=== PATIENT | male | born 1960 | race Caucasian/White ===

== ENCOUNTER 2017-12-02 09:12 | Inpatient (IN) | payer BC ==
[2017-12-02] VITALS (8 sets, daily range): BP systolic 132–183; BP diastolic 77–92; PULSE 83–104; RESP 15–18; TEMP 97.3–98.2; O2SAT 98–100
[~2017-12-02] VITALS: Ht 182.9 cm; Wt 88.7 kg
[2017-12-02] MEDS ORDERED: TETANUS/DIPHTHERIA TOXOID ADULT 0.5 ML VIAL IM ONE (09:30)
[2017-12-02] MEDS ORDERED: SODIUM CHLORIDE 0.9% FLUSH 10 ML FLUSH IVF PRN (09:30)
[2017-12-02] MEDS ORDERED: ONDANSETRON HCL 4 MG/2 ML VIAL IVP ONE (09:30)
[2017-12-02] MEDS ORDERED: MORPHINE SULFATE 4 MG/ML INJ IV PUSH ONE (09:30)
--- NOTE | 2017-12-02 09:33 | PD ---
HPI Chief Complaint: Fall Time Seen by Provider: 09:20 Travel History International Travel<30 days: No Contact w/Intl Traveler<30days: No Traveled to known affect area: No History of Present Illness HPI The patient is a 57-year-old male who presents to the emergency department via EMS after a fall at home. According to EMS the patient apparently fell at home last night, however, would not allow his to call EMS. The patient was ambulating to the bathroom this morning, however, had difficulty bearing weight. EMS noted a leg length discrepancy in the left leg, the patient does complain of left hip pain. According to EMS the patient has a history of dementia but takes no medications and has no known drug allergies. Upon arrival the patient is a poor historian, does complain of left hip pain. 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 He does complain of some abrasions to the right arm with the left hip pain. He denies any head injury, neck pain, chest pain, shortness breath, nausea, vomiting, or abdominal pain. However, he is a somewhat poor historian. [facility] Past Medical History Narrative Medical Dementia per EMS Past Surgical History Narrative Surgical Poor historian, unable to obtain Social History Tobacco Use: Yes Allergies-Medications (Allergen,Severity, Reaction): Coded Allergies: No Known Allergies (Verified Allergy, Unknown, 12/02/17) Reported Meds & Prescriptions Reported Meds & Active Scripts Active No Active Prescriptions or Reported Medications Review of Systems ROS Limitations: Poor Historian Except as stated in HPI: all other systems reviewed are Neg HENT: No: Headaches, Neck Pain Cardiovascular: No: Chest Pain or Discomfort Respiratory: No: Shortness of Breath Gastrointestinal: No: Nausea, Vomiting, Abdominal Pain Musculoskeletal: Positive: Limited ROM, Pain Neurologic: Positive: Other (history of dementia) Physical Exam Narrative GENERAL: Awake, alert, 57-year-old male appears his stated age, does appear somewhat disheveled. SKIN: Focused skin assessment warm/dry. Superficial abrasions noted to the right forearm. HEAD: Atraumatic. Normocephalic. EYES: Pupils equal and round. 3 mm bilateral and reactive. ENT: No nasal bleeding or discharge. Mucous membranes pink and moist. NECK: Trachea midline. No JVD. CARDIOVASCULAR: Regular rate and rhythm. No murmur appreciated. RESPIRATORY: No accessory muscle use. Clear to auscultation. Breath sounds equal bilaterally. GASTROINTESTINAL: Abdomen soft, non-tender, nondistended. No rebound tenderness. MUSCULOSKELETAL: Leg length discrepancy noted on the left, patient is unable to completely extend the left lower extremity. Tenderness of the left hip. Positive dorsalis pedal pulses. NEUROLOGICAL: Awake and alert. No obvious cranial nerve deficits. Motor grossly within normal limits. Normal speech. Nonfocal. 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 PSYCHIATRIC: Appears confused. Data Data Last Documented VS Vital Signs Date Time Temp Pulse Resp B/P (MAP) Pulse Ox O2 Delivery O2 Flow Rate FiO2 12/02/17 10:47 97.8 83 15 169/79 (109) 100 Room Air Orders Orders Electrocardiogram (12/02/17 09:20) Complete Blood Count With Diff (12/02/17 09:20) Comprehensive Metabolic Panel (12/02/17 09:20) Prothrombin Time / Inr (Pt) (12/02/17 09:20) Act Partial Throm Time (Ptt) (12/02/17 09:20) Urinalysis - C+S If Indicated (12/02/17 09:20) Type And Screen (12/02/17 09:20) Chest, Single Ap (12/02/17 09:20) Hip, Uni(Ap&Lat) W Ap Pelvis (12/02/17 09:20) Iv Access Insert/Monitor (12/02/17 09:20) Oximetry (12/02/17 09:20) Ecg Monitoring (12/02/17 09:20) Morphine Inj (Morphine Inj) (12/02/17 09:30) Ondansetron Inj (Zofran Inj) (12/02/17 09:30) Sodium Chloride 0.9% Flush (Ns Flush) (12/02/17 09:30) Tetanus/Diphtheria Tox Adult (Tetanus/Di (12/02/17 09:30) Npo After Midnight W/ Po Meds (12/02/17 Lunch) Urine Culture (12/02/17 10:45) Labs Laboratory Tests Test 12/02/17 09:25 12/02/17 10:45 White Blood Count 12.4 TH/MM3 Red Blood Count 4.67 MIL/MM3 Hemoglobin 15.2 GM/DL Hematocrit 44.1 % Mean Corpuscular Volume 94.5 FL Mean Corpuscular Hemoglobin 32.6 PG Mean Corpuscular Hemoglobin Concent 34.5 % Red Cell Distribution Width 12.8 % Platelet Count 175 TH/MM3 Mean Platelet Volume 9.2 FL Neutrophils (%) (Auto) 88.7 % Lymphocytes (%) (Auto) 3.6 % Monocytes (%) (Auto) 7.6 % Eosinophils (%) (Auto) 0.0 % Basophils (%) (Auto) 0.1 % Neutrophils # (Auto) 11.0 TH/MM3 Lymphocytes # (Auto) 0.4 TH/MM3 Monocytes # (Auto) 0.9 TH/MM3 Eosinophils # (Auto) 0.0 TH/MM3 Basophils # (Auto) 0.0 TH/MM3 CBC Comment DIFF FINAL Differential Comment Prothrombin Time 10.0 SEC Prothromb Time International Ratio 1.0 RATIO Activated Partial Thromboplast Time 26.2 SEC Blood Urea Nitrogen 12 MG/DL Creatinine 1.09 MG/DL Random Glucose 111 MG/DL Total Protein 7.2 GM/DL Albumin 4.2 GM/DL Calcium Level 9.0 MG/DL Alkaline Phosphatase 78 U/L Aspartate Amino Transf (AST/SGOT) 25 U/L Alanine Aminotransferase (ALT/SGPT) 21 U/L Total Bilirubin 2.1 MG/DL Sodium Level 127 MEQ/L Potassium Level 4.5 MEQ/L Chloride Level 95 MEQ/L Carbon Dioxide Level 24.2 MEQ/L Anion Gap 8 MEQ/L Estimat Glomerular Filtration Rate 69 ML/MIN Urine Color YELLOW Urine Turbidity CLEAR Urine pH 7.0 Urine Specific [place] 1.007 Urine Protein TRACE mg/dL Urine Glucose (UA) NEG mg/dL Urine Ketones TRACE mg/dL Urine Occult Blood MOD Urine Nitrite NEG Urine Bilirubin NEG Urine Urobilinogen LESS THAN 2.0 MG/DL Urine Leukocyte Esterase NEG Urine RBC 1 /hpf Urine WBC 3 /hpf Urine Bacteria OCC /hpf Urine Mucus FEW /lpf Microscopic Urinalysis Comment CATH-CULTURE IND MDM Medical Decision Making Medical Screen Exam Complete: Yes Emergency Medical Condition: Yes Medical Record Reviewed: Yes Interpretation(s) EKG reveals normal sinus rhythm with a rate 81. No ischemic changes or ectopy noted. Last Impressions Hip and Pelvis X-Ray 12/02/17 0920 Signed Impressions: Service Date/Time: November 10:02 - CONCLUSION: 1. Acute fracture involving the left femoral neck. 2. Degenerative changes involving the lower lumbar spine. Rashid Csatañeda MD Chest X-Ray 12/02/17919 Signed Impressions: Service Date/Time: November 10:14 - CONCLUSION: 1. Faint periosteal reaction symmetrically along the lateral aspect of both second ribs probably represents a normal tendinous or ligamentous attachment. 2. Mild dextroscoliosis of the dorsal spine with associated degenerative changes. 3. Otherwise negative. Lungs are clear. No acute osseous injury. Ronny Mccoy MD Laboratory Tests Test 12/02/17 09:25 12/02/17 10:45 White Blood Count 12.4 TH/MM3 Red Blood Count 4.67 MIL/MM3 Hemoglobin 15.2 GM/DL Hematocrit 44.1 % Mean Corpuscular Volume 94.5 FL Mean Corpuscular Hemoglobin 32.6 PG Mean Corpuscular Hemoglobin Concent 34.5 % Red Cell Distribution Width 12.8 % Platelet Count 175 TH/MM3 Mean Platelet Volume 9.2 FL Neutrophils (%) (Auto) 88.7 % Lymphocytes (%) (Auto) 3.6 % Monocytes (%) (Auto) 7.6 % Eosinophils (%) (Auto) 0.0 % Basophils (%) (Auto) 0.1 % Neutrophils # (Auto) 11.0 TH/MM3 Lymphocytes # (Auto) 0.4 TH/MM3 Monocytes # (Auto) 0.9 TH/MM3 Eosinophils # (Auto) 0.0 TH/MM3 Basophils # (Auto) 0.0 TH/MM3 CBC Comment DIFF FINAL Differential Comment Prothrombin Time 10.0 SEC Prothromb Time International Ratio 1.0 RATIO Activated Partial Thromboplast Time 26.2 SEC Blood Urea Nitrogen 12 MG/DL Creatinine 1.09 MG/DL Random Glucose 111 MG/DL Total Protein 7.2 GM/DL Albumin 4.2 GM/DL Calcium Level 9.0 MG/DL Alkaline Phosphatase 78 U/L Aspartate Amino Transf (AST/SGOT) 25 U/L Alanine Aminotransferase (ALT/SGPT) 21 U/L Total Bilirubin 2.1 MG/DL Sodium Level 127 MEQ/L Potassium Level 4.5 MEQ/L Chloride Level 95 MEQ/L Carbon Dioxide Level 24.2 MEQ/L Anion Gap 8 MEQ/L Estimat Glomerular Filtration Rate 69 ML/MIN Urine Color YELLOW Urine Turbidity CLEAR Urine pH 7.0 Urine Specific [place] 1.007 Urine Protein TRACE mg/dL Urine Glucose (UA) NEG mg/dL Urine Ketones TRACE mg/dL Urine Occult Blood MOD Urine Nitrite NEG Urine Bilirubin NEG Urine Urobilinogen LESS THAN 2.0 MG/DL Urine Leukocyte Esterase NEG Urine RBC 1 /hpf Urine WBC 3 /hpf Urine Bacteria OCC /hpf Urine Mucus FEW /lpf Microscopic Urinalysis Comment CATH-CULTURE IND Differential Diagnosis Differential diagnosis includes left hip fracture, pelvic fracture, hip dislocation, mechanical fall, rhabdomyolysis, dementia, delirium, UTI, hyponatremia, abrasion. Narrative Course IV was established, labs are drawn and sent, and the patient was placed on cardiac telemetry monitoring and continuous pulse oximetry monitoring. EKG was ordered and interpreted. X-ray of the chest, pelvis, and left hip were obtained. The patient was administered morphine, Zofran, and placed on IV fluids. X-ray left hip reveals a left femoral neck fracture. I discussed the patient with the on-call orthopedist, Dr. Suggs, who requested patient be kept nothing by mouth after midnight. Nervous was paged for admission. Physician Communication Physician Communication I discussed the patient with the on-call orthopedist who request nothing by mouth after midnight. A call was placed to the on-call medical service for admission. I discussed the patient with Dr. Fleming who agrees with admission. Diagnosis Primary Impression: Left displaced femoral neck fracture Admitting Information Admitting Physician Requests: Admit Scripts No Active Prescriptions or Reported Meds Condition: Stable Huang Mabry MD Dec 02, 2017 09:33
[2017-12-02 10:07] LABS: BASOPHIL % 0.1 % (0.0-2.0); HEMATOCRIT 44.1 % (39.0-51.0); HEMOGLOBIN 15.2 GM/DL (13.0-17.0); LYMPH % 3.6 % (9.0-44.0); LYMPHOCYTE # 0.4 TH/MM3 (1.0-4.8); MEAN CELL VOLUME 94.5 FL (80.0-100.0); MEAN CORPUSCULAR HEMOGLOBIN 32.6 PG (27.0-34.0); MEAN CORPUSCULAR HGB CONC 34.5 % (32.0-36.0); MEAN PLATELET VOLUME 9.2 FL (7.0-11.0); MONO % 7.6 % (0.0-8.0); MONOCYTE # 0.9 TH/MM3 (0-0.9); NEUT % 88.7 % (16.0-70.0); PLATELET COUNT 175 TH/MM3 (150-450); RED BLOOD COUNT 4.67 MIL/MM3 (4.50-5.90); RED CELL DISTRIBUTION WIDTH 12.8 % (11.6-17.2); WHITE BLOOD COUNT 12.4 TH/MM3 (4.0-11.0)
[2017-12-02 10:20] LABS: ALBUMIN 4.2 GM/DL (3.4-5.0); AST (GOT) 25 U/L (15-37); BICARBONATE 24.2 MEQ/L (21.0-32.0); BLOOD UREA NITROGEN 12 MG/DL (7-18); CHLORIDE 95 MEQ/L (98-107); CREATININE 1.09 MG/DL (0.60-1.30); GLOMERULAR FILTRATION RATE 69 ML/MIN (>89); GLUCOSE,RANDOM 111 MG/DL (74-106); SODIUM (NA) 127 MEQ/L (136-145)
[2017-12-02 10:21] LABS: ALT (GPT) 21 U/L (12-78)
[2017-12-02 10:23] LABS: ALKALINE PHOSPHATASE 78 U/L (45-117); TOTAL BILIRUBIN ADULT 2.1 MG/DL (0.2-1.0); TOTAL PROTEIN 7.2 GM/DL (6.4-8.2)
--- NOTE | 2017-12-02 10:31 | RADRPT ---
EXAM DATE/TIME: 12/02/2017 10:14 [facility] COMPARISON: No previous studies available for comparison. INDICATIONS : Chest discomfort; fall last night. MEDICAL HISTORY : Unobtainable. SURGICAL HISTORY : Unobtainable. ENCOUNTER: Initial ACUITY: 1 day PAIN SCORE: Non-responsive. LOCATION: Bilateral chest FINDINGS: A single view of the chest demonstrates the lungs to be symmetrically aerated without evidence of mas s, infiltrate or effusion. The cardiomediastinal contours are unremarkable. Osseous structures are intact with some degenerative spurring of the dorsal spine. Mild dextroscoliosis of the same. However , there does appear to be some periosteal reaction along the lateral aspect of the second ribs bilate rally, left greater than right. Symmetry suggests normal anatomic structures, possibly representing t endinous or ligamentous attachments. CONCLUSION: 1. Faint periosteal reaction symmetrically along the lateral aspect of both second ribs probably repr esents a normal tendinous or ligamentous attachment. 2. Mild dextroscoliosis of the dorsal spine with associated degenerative changes. 3. Otherwise negative. Lungs are clear. No acute osseous injury. Ronny Mccoy MD on December 02, 2017 at 10:25 Board Certified Radiologist. This report was verified electronically.
--- NOTE | 2017-12-02 10:34 | RADRPT ---
EXAM DATE/TIME: 12/02/2017 10:02 [facility] COMPARISON: No previous studies available for comparison. INDICATIONS : Left hip pain from fall last night. MEDICAL HISTORY : None. SURGICAL HISTORY : None. ENCOUNTER: Initial ACUITY: 1 day PAIN SCORE: Non-responsive. LOCATION: Left hip. FINDINGS: There is evidence of an acute fracture involving the left femoral neck. Degenerative changes are note d involving the lower lumbar spine. CONCLUSION: 1. Acute fracture involving the left femoral neck. 2. Degenerative changes involving the lower lumbar spine. Rashid Castañeda MD on December 02, 2017 at 10:30 Board Certified Radiologist. This report was verified electronically.
[2017-12-02 11:21] LABS: BACTERIA, URINE OCC /hpf; BILIRUBIN, URINE NEG (NEG); BLOOD, URINE MOD (NEG); GLUCOSE,URINE NEG (NEG); KETONE, URINE TRACE mg/dL (NEG); MUCUS URINE FEW /lpf (OCC); NITRITE,URINE NEG (NEG); URINE COLOR YELLOW (YELLW/STRAW); URINE LEUKOCYTE ESTERASE NEG (NEG)
[2017-12-02] MEDS ORDERED: BISACODYL 10 MG SUPP RECTAL PRN (13:00)
[2017-12-02] MEDS ORDERED: ONDANSETRON HCL 4 MG/2 ML VIAL IVP PRN (13:00)
[2017-12-02] MEDS ORDERED: ACETAMINOPHEN 325 MG TAB PO PRN (13:00)
[2017-12-02] MEDS ORDERED: SENNOSIDES 8.6 MG TAB PO PRN (13:00)
[2017-12-02] MEDS ORDERED: NALOXONE HCL 0.4 MG/ML AMP IV PUSH PRN (13:00)
[2017-12-02] MEDS ORDERED: LACTULOSE SYRUP 20 GM/30 ML CUP PO PRN (13:00)
[2017-12-02] MEDS ORDERED: MORPHINE SULFATE 2 MG/ML INJ IV PUSH PRN (13:00)
[2017-12-02] MEDS ORDERED: SODIUM CHLORIDE 0.9% FLUSH 10 ML FLUSH IV FLUSH PRN (13:00)
--- NOTE | 2017-12-02 13:03 | HHI.HP ---
HPI Service [facility] Hospitalists Primary Care Physician No Primary Care Physician Admission Diagnosis left femoral neck fracture Diagnoses: Chief Complaint: Fall, AMS Travel History International Travel<30 Days: No Contact w/Intl Traveler <30 Da: No Traveled to Known Affected Are: No History of Present Illness This is a 57-year-old male with past medical history significant for early onset dementia who presents to [facility] after he sustained a fall. Please note that due to the patient's early onset dementia, he is unable to provide any history or significant information. As per the patient's the patient fell the night prior to presentation to the hospital and his found him on the floor. She states that the patient was able to get out of the floor himself however he was limping and complaining of pain on the left hip. The patient's also states that the patient was slightly more confused than his usual confusion. The patient's states that they had followed up 3 years ago with a neurologist in the [facility] [address] [place], who ran some tests, however none of these were revealing at the time. Otherwise there are no reports of fevers, chills, chest pain, shortness of breath, diarrhea, abdominal pain. Review of Systems As per HPI, other systems reviewed by me and negative. Past Family Social History Past Medical History 1. Early onset dementia. 2. Hypertension, however the patient has lost a lot of weight as per and was taking of medications. Past Surgical History None Reported Medications Reported Meds & Active Scripts Active No Active Prescriptions or Reported Medications Allergies: Coded Allergies: No Known Allergies (Verified Allergy, Unknown, 12/02/17) Active Ordered Medications Current Medications Medications (Trade) Dose Ordered Sig/Robert Route Start Time Stop Time Status Last Admin Sodium Chloride 1,000 ml @ 75 mls/hr [id number] IV 12/02/17 12:50 12/02/17 13:11 (NS Flush) 2 ml UNSCH PRN IV FLUSH 12/02/17 13:00 (NS Flush) 2 ml BID IV FLUSH 12/02/17 21:00 (Tylenol) 650 mg Q4H PRN PO 12/02/17 13:00 (Zofran Inj) 4 mg Q6H PRN IVP 12/02/17 13:00 (Heparin Inj) 5,000 units Q8H SQ 12/02/17 14:00 12/02/17 13:11 (Narcan Inj) 0.4 mg UNSCH PRN IV PUSH 12/02/17 13:00 (Melinda-Colace) 1 tab BID PO 12/02/17 21:00 12/02/17 20:01 (Milk Of Magnesia Liq) 30 ml Q12H PRN PO 12/02/17 13:00 (Senokot) 17.2 mg Q12H PRN PO 12/02/17 13:00 (Dulcolax Supp) 10 mg DAILY PRN RECTAL 12/02/17 13:00 (Lactulose Liq) 30 ml DAILY PRN PO 12/02/17 13:00 ([place] 5-325 Mg) 1 tab Q4H PRN PO 12/02/17 13:00 12/03/17 09:05 (Morphine Inj) 2 mg Q3H PRN IV PUSH 12/02/17 13:00 12/03/17 00:07 (Romazicon Inj) 0.2 mg Q1M PRN IV PUSH 12/02/17 13:15 (Ativan) 1 mg Q4H PRN PO 12/02/17 13:15 (Ativan Inj) 1 mg Q4H PRN IV PUSH 12/02/17 13:15 12/02/17 20:00 (Ativan) 2 mg Q2H PRN PO 12/02/17 13:15 (Ativan Inj) 2 mg Q2H PRN IV PUSH 12/02/17 13:15 12/03/17 01:06 (Ativan Inj) 2 mg Q1H PRN IV PUSH 12/02/17 13:15 (Ativan Inj) 2 mg Q15M PRN IV PUSH 12/02/17 13:15 Lactated Ringer's 1,000 ml @ 30 mls/hr Q24H PRN IV 12/03/17 00:30 12/06/17 00:29 (Betadine 5% Antisepsis Kit) 1 applic [employer] PRN EACH NARE 12/03/17 00:30 12/06/17 00:29 (Chlorhexidine 2% Cloth) 3 pack [employer] PRN TOPICAL 12/03/17 00:30 12/06/17 00:29 (Folate) 1 mg DAILY PO 12/03/17 09:00 (Vitamin B1) 100 mg DAILY PO 12/03/17 09:00 Family History Father had dementia at around age 72. Social History The patient is a current smoker he smokes 3-4 cigarettes per day, however he used to smoke 2 packs per day for several years. The patient drinks 6-8 beers per day and he has done it for over 20 years. No illicit drug use reported. Physical Exam Vital Signs Vital Signs Date Time Temp Pulse Resp B/P (MAP) Pulse Ox O2 Delivery O2 Flow Rate FiO2 12/02/17 10:47 97.8 83 15 169/79 (109) 100 Room Air 12/02/17 09:37 16 12/02/17 09:24 16 99 Room Air 12/02/17 09:17 80 16 99 Room Air 12/02/17 09:17 98.1 87 16 183/88 (119) 100 Physical Exam GENERAL: This is a well-nourished, well-developed patient, in no apparent distress. SKIN: No rashes, ecchymoses or lesions. Cool and dry. HEAD: Atraumatic. Normocephalic. No temporal or scalp tenderness. EYES: Pupils equal round and reactive. Extraocular motions intact. No scleral icterus. No injection or drainage. ENT: Nose without bleeding, purulent drainage or septal hematoma. Throat without erythema, tonsillar hypertrophy or exudate. Uvula midline. Airway patent. NECK: Trachea midline. No JVD or lymphadenopathy. Supple, nontender, no meningeal signs. CARDIOVASCULAR: Regular rate and rhythm without murmurs, gallops, or rubs. RESPIRATORY: Clear to auscultation. Breath sounds equal bilaterally. No wheezes , rales, or rhonchi. GASTROINTESTINAL: Abdomen soft, non-tender, nondistended. No hepato-splenomegaly , or palpable masses. No guarding. MUSCULOSKELETAL: Extremities without clubbing, cyanosis, or edema. No joint tenderness, effusion, or edema noted. No calf tenderness. Negative Homans sign bilaterally. Left lower extremity is shortened and externally rotated. NEUROLOGICAL: Awake and alert. Cranial nerves II through XII intact. Motor and sensory grossly within normal limits. Five out of 5 muscle strength in all muscle groups. Normal speech. Laboratory Laboratory Tests Test 12/02/17 09:25 12/02/17 10:45 White Blood Count 12.4 Red Blood Count 4.67 Hemoglobin 15.2 Hematocrit 44.1 Mean Corpuscular Volume 94.5 Mean Corpuscular Hemoglobin 32.6 Mean Corpuscular Hemoglobin Concent 34.5 Red Cell Distribution Width 12.8 Platelet Count 175 Mean Platelet Volume 9.2 Neutrophils (%) (Auto) 88.7 Lymphocytes (%) (Auto) 3.6 Monocytes (%) (Auto) 7.6 Eosinophils (%) (Auto) 0.0 Basophils (%) (Auto) 0.1 Neutrophils # (Auto) 11.0 Lymphocytes # (Auto) 0.4 Monocytes # (Auto) 0.9 Eosinophils # (Auto) 0.0 Basophils # (Auto) 0.0 CBC Comment DIFF FINAL Differential Comment Prothrombin Time 10.0 Prothromb Time International Ratio 1.0 Activated Partial Thromboplast Time 26.2 Blood Urea Nitrogen 12 Creatinine 1.09 Random Glucose 111 Total Protein 7.2 Albumin 4.2 Calcium Level 9.0 Alkaline Phosphatase 78 Aspartate Amino Transf (AST/SGOT) 25 Alanine Aminotransferase (ALT/SGPT) 21 Total Bilirubin 2.1 Sodium Level 127 Potassium Level 4.5 Chloride Level 95 Carbon Dioxide Level 24.2 Anion Gap 8 Estimat Glomerular Filtration Rate 69 Urine Color YELLOW Urine Turbidity CLEAR Urine pH 7.0 Urine Specific [place] 1.007 Urine Protein TRACE Urine Glucose (UA) NEG Urine Ketones TRACE Urine Occult Blood MOD Urine Nitrite NEG Urine Bilirubin NEG Urine Urobilinogen LESS THAN 2.0 Urine Leukocyte Esterase NEG Urine RBC 1 Urine WBC 3 Urine Bacteria OCC Urine Mucus FEW Microscopic Urinalysis Comment CATH-CULTURE IND Date/Time Source Procedure Growth Status 12/02/17 10:45 Urine Catheterized Urine Urine Culture Pending Received Result Diagram: 12/02/1792412/02/17924 Imaging Last Impressions Hip and Pelvis X-Ray 12/02/17919 Signed Impressions: Service Date/Time: November 10:02 - CONCLUSION: 1. Acute fracture involving the left femoral neck. 2. Degenerative changes involving the lower lumbar spine. Rashid Castañeda MD Chest X-Ray 12/02/17919 Signed Impressions: Service Date/Time: November 10:14 - CONCLUSION: 1. Faint periosteal reaction symmetrically along the lateral aspect of both second ribs probably represents a normal tendinous or ligamentous attachment. 2. Mild dextroscoliosis of the dorsal spine with associated degenerative changes. 3. Otherwise negative. Lungs are clear. No acute osseous injury. Ronny Mccoy MD Head CT 12/02/17 Signed Impressions: Service Date/Time: November 14:59 - CONCLUSION: 1. Cerebral atrophy, most prominent in the anterior aspect of the left temporal lobe. 2. Small retention cyst in both maxillary antra. Osseous structures are intact. Ronny Mccoy MD Brain MRI 12/02/17 Signed Impressions: Service Date/Time: November 14:09 - CONCLUSION: 1. Negative examination. Corbin Ott MD Caprini VTE Risk Assessment Caprini VTE Risk Assessment: Mod/High Risk (score >= 2) Caprini Risk Assessment Model Point Value = 1 Point Value = 2 Point Value = 3 Point Value = 5 Age 41-60 Minor surgery BMI > 25 kg/m2 Swollen legs Varicose veins or History of unexplained or recurrent spontaneous Oral contraceptives or hormone replacement Sepsis (< 1 month) Serious lung disease, including pneumonia (< 1 month) Abnormal pulmonary function Acute myocardial infarction Congestive heart failure (< 1 month) History of inflammatory bowel disease Medical patient at bed rest Age 61-74 Arthroscopic surgery Major open surgery (> 45 min) Laparoscopic surgery (> 45 min) Malignancy Confined to bed (> 72 hours) Immobilizing plaster cast Central venous access Age >= 75 History of VTE Family history of VTE Factor V Leiden Prothrombin [id number] Lupus anticoagulant Anticardiolipin antibodies Elevated serum homocysteine Heparin-induced thrombocytopenia Other congenital or acquired thrombophilia Stroke (< 1 month) Elective arthroplasty Hip, pelvis, or leg fracture Acute spinal cord injury (< 1 month) Prophylaxis Regimen Total Risk Factor Score Risk Level Prophylaxis Regimen 0-1 Low Early ambulation 2 Moderate Order ONE of the following: *Sequential Compression Device (SCD) *Heparin 5000 units SQ BID 3-4 Higher Order ONE of the following medications: *Heparin 5000 units SQ TID *Enoxaparin/Lovenox 40 mg SQ daily (WT < 150 kg, CrCl > 30 mL/min) *Enoxaparin/Lovenox 30 mg SQ daily (WT < 150 kg, CrCl > 10-29 mL/min) *Enoxaparin/Lovenox 30 mg SQ BID (WT < 150 kg, CrCl > 30 mL/min) AND/OR *Sequential Compression Device (SCD) 5 or more Highest Order ONE of the following medications: *Heparin 5000 units SQ TID (Preferred with Epidurals) *Enoxaparin/Lovenox 40 mg SQ daily (WT < 150 kg, CrCl > 30 mL/min) *Enoxaparin/Lovenox 30 mg SQ daily (WT < 150 kg, CrCl > 10-29 mL/min) *Enoxaparin/Lovenox 30 mg SQ BID (WT < 150 kg, CrCl > 30 mL/min) AND *Sequential Compression Device (SCD) Assessment and Plan Problem List: (1) Left displaced femoral neck fracture ICD Code: S72.002A - Fracture of unspecified part of neck of left femur, initial encounter for closed fracture Status: Acute Plan: Patient status post fall at home. Pelvis x-ray showed an acute fracture involving the left femoral neck. Orthopedic surgery consulted. Patient for OR in a.m. (2) Early onset Alzheimer's dementia ICD Code: G30.0 - Alzheimer's disease with early onset; F02.80 - Dementia in other diseases classified elsewhere without behavioral disturbance Plan: As per the patient's the patient is more confused than usual. We will order head CT, MRI of the brain, B12, RPR, HIV, TSH (3) Hyponatremia ICD Code: E87.1 - Hypo-osmolality and hyponatremia Plan: Suspect hypovolemic hyponatremia. Place on IV normal saline monitor BMP. (4) Leukocytosis ICD Code: D72.829 - Elevated white blood cell count, unspecified Plan: Check urinalysis. Chest x-ray did not show any evidence of pneumonia. (5) Fall at home ICD Code: W19.XXXA - Unspecified fall, initial encounter; Y92.009 - Unspecified place in unspecified non-institutional (private) residence as the place of occurrence of the external cause Plan: Physical therapy evaluation. Follow at home likely induced by hyponatremia worsened mental status. Assessment and Plan DVT prophylaxis: Heparin subcutaneously. Code Status Full code Discussed Condition With ED physician Physician Certification 2 Midnight Certification Type: Admission for Inpatient Services Order for Inpatient Services The services are ordered in accordance with Medicare regulations or non- Medicare payer requirements, as applicable. In the case of services not specified as inpatient-only, they are appropriately provided as inpatient services in accordance with the 2-midnight benchmark. Estimated LOS (days): 2 days is the estimated time the patient will need to remain in the hospital, assuming treatment plan goals are met and no additional complications. Post-Hospital Plan: Not yet determined Problem Qualifiers (1) Early onset Alzheimer's dementia: Qualified Codes: G30.0 - Alzheimer's disease with early onset; F02.80 - Dementia in other diseases classified elsewhere without behavioral disturbance (2) Leukocytosis: Qualified Codes: D72.829 - Elevated white blood cell count, unspecified Hossein Paniagua MD Dec 02, 2017 13:03
[2017-12-02] MEDS: SODIUM CHLOR 0.45% 1000 ML INJ 1,000 ML IV SCH (13:11)
[2017-12-02] MEDS: HEPARIN SODIUM - SQ 10,000 UNITS/ML VIAL SQ SCH ×2 (13:11→20:04)
[2017-12-02] MEDS ORDERED: LORazepam 2 MG TAB PO PRN (13:15)
[2017-12-02] MEDS ORDERED: LORazepam 2 MG/ML VIAL IV PUSH PRN ×4 (13:15)
[2017-12-02] MEDS ORDERED: LORazepam 1 MG TAB PO PRN (13:15)
[2017-12-02] MEDS ORDERED: FLUMAZENIL 0.5 MG/5 ML VIAL IV PUSH PRN (13:15)
[2017-12-02] MEDS: ACETAMINOPHEN/HYDROcodone 325 MG/5 MG TAB PO PRN (13:41)
[2017-12-02] MEDS ORDERED: GADODIAMIDE PF 287 MG/ML 20 ML VIAL (for RAD MRI) IVCONTRAST ONE (14:29)
--- NOTE | 2017-12-02 15:25 | RADRPT ---
EXAM DATE/TIME: 12/02/2017 14:59 [facility] COMPARISON: No previous studies available for comparison. INDICATIONS : Altered mental status with confusion. RADIATION DOSE: 56.35 CTDIvol (mGy) MEDICAL HISTORY : Dementia. SURGICAL HISTORY : Non-responsive. ENCOUNTER: Initial ACUITY: 1 day PAIN SCALE: Non-responsive LOCATION: Bilateral cranial TECHNIQUE: Multiple contiguous axial images were obtained of the head. Using automated exposure control and adj ustment of the mA and/or kV according to patient size, radiation dose was kept as low as reasonably a chievable to obtain optimal diagnostic quality images. DICOM format image data is available electro nically for review and comparison. FINDINGS: CEREBRUM: The ventricles are normal for age. Cortical atrophy is most prominent in the left temporal lobe but also involves the parietal convexities. No evidence of midline shift, mass lesion, hemorrhage or acut e infarction. No extra-axial fluid collections are seen. POSTERIOR FOSSA: The cerebellum and brainstem are intact. The 4th ventricle is midline. The cerebellopontine angle i s unremarkable. EXTRACRANIAL: The visualized portion of the orbits is intact. Small retention cyst in both maxillary antra. SKULL: The calvaria is intact. No evidence of skull fracture. CONCLUSION: 1. Cerebral atrophy, most prominent in the anterior aspect of the left temporal lobe. 2. Small retention cyst in both maxillary antra. Osseous structures are intact. Ronny Mccoy MD on December 02, 2017 at 15:20 Board Certified Radiologist. This report was verified electronically.
[2017-12-02 16:14] LABS: BICARBONATE 24.9 MEQ/L (21.0-32.0); BLOOD UREA NITROGEN 13 MG/DL (7-18); CALCIUM 8.2 MG/DL (8.5-10.1); CHLORIDE 100 MEQ/L (98-107); CREATININE 1.02 MG/DL (0.60-1.30); GLOMERULAR FILTRATION RATE 75 ML/MIN (>89); GLUCOSE,RANDOM 114 MG/DL (74-106); SODIUM (NA) 131 MEQ/L (136-145)
[2017-12-02 16:56] LABS: HEMOGLOBIN A1C 5.4 % (4.3-6.0)
--- NOTE | 2017-12-02 16:58 | RADRPT ---
EXAM DATE/TIME: 12/02/2017 14:09 [facility] COMPARISON: No previous studies available for comparison. INDICATIONS : Confusion. CONTRAST: 17 cc Omniscan (gadodiamide) IV MEDICAL HISTORY : Hypertension. SURGICAL HISTORY : None. ENCOUNTER: Initial ACUITY: 1 day PAIN SCORE: 0/10 LOCATION: Head. TECHNIQUE: Multiplanar, multisequence MRI of the brain was performed both prior to and following the administrat ion of paramagnetic contrast. FINDINGS: CEREBRUM: The ventricles are normal for age. No evidence of midline shift, mass lesion, hemorrhage or acute in farction. No extraaxial fluid collections are seen. The pituitary gland and suprasellar cistern are normal in configuration. WHITE MATTER: No significant signal abnormalities are seen in the white matter. POSTERIOR FOSSA: The cerebellum and brainstem are intact. The 4th ventricle is midline. The cerebellopontine angle is unremarkable. The cerebellar tonsils are normal in position. DIFFUSION IMAGING: No focal areas of restricted diffusion are seen. No evidence of acute infarction. EXTRACRANIAL: The visualized portions of the orbits and paranasal sinuses are unremarkable. POST-CONTRAST: No abnormal areas of parenchymal or dural enhancement. No evidence of blood-brain barrier breakdown. CONCLUSION: 1. Negative examination. Corbin Ott MD on December 02, 2017 at 16:53 Board Certified Radiologist. This report was verified electronically.
[2017-12-02 17:02] LABS: FOLATE 9.5 NG/ML (3.1-17.5)
[2017-12-02] MEDS: DOCUSATE SODIUM 50 MG/SENNA 8.6 MG TAB PO SCH (20:01)
[2017-12-02] MEDS: SODIUM CHLORIDE 0.9% FLUSH 10 ML FLUSH IV FLUSH SCH (20:01)
--- NOTE | 2017-12-02 20:23 | EKG ---
Date Performed: 12/02/2017 Time Performed: 09:26:46 PTAGE: 57 years EKG: Sinus rhythm NORMAL ECG NO PREVIOUS TRACING DOCTOR: Steven Weinberg Interpretating Date/Time 12/02/2017 20:16:22
[2017-12-03] VITALS (11 sets, daily range): BP systolic 112–180; BP diastolic 60–104; PULSE 53–98; RESP 18–21; TEMP 95.9–99.1; O2SAT 95–100
[2017-12-03] MEDS ORDERED: POVIDONE IODINE 5% (ANTISEPSIS KIT) 4 APPLICATIONS EACH NARE PRN (00:30)
[2017-12-03] MEDS ORDERED: CHLORHEXIDINE GLUCONATE 2 % 1 PACK (2 CLOTHS) TOPICAL PRN (00:30)
[2017-12-03] MEDS ORDERED: LACTATED RINGER'S 1000 ML IV PRN (00:30)
[2017-12-03] MEDS: SODIUM CHLOR 0.45% 1000 ML INJ 1,000 ML IV SCH ×2 (02:10→13:49)
[2017-12-03] MEDS: HEPARIN SODIUM - SQ 10,000 UNITS/ML VIAL SQ SCH (06:00)
--- NOTE | 2017-12-03 06:54 | PD.ORT.PN ---
Subjective Subjective Remarks Patient is confused in restraints. He had a fall . Yesterday with significant pain to left hip. Has a history of smoking 6-10 beers a day and smokes cigarettes. His baseline is confusion Objective Vitals Vital Signs Date Time Temp Pulse Resp B/P (MAP) Pulse Ox O2 Delivery O2 Flow Rate FiO2 12/03/17 02:58 84 12/03/17 02:06 143/79 (100) 12/03/17 00:55 99.1 98 21 158/98 (118) 98 12/03/17 00:46 180/85 (116) 12/02/17 20:00 97.3 91 16 154/92 (112) 98 12/02/17 19:58 104 12/02/17 16:30 98.2 87 18 171/79 (109) 98 12/02/17 16:08 97.8 92 16 132/81 (98) 99 12/02/17 14:50 16 12/02/17 13:17 97.8 96 16 147/77 (100) 98 Room Air 12/02/17 10:47 97.8 83 15 169/79 (109) 100 Room Air 12/02/17 09:37 16 12/02/17 09:24 16 99 Room Air 12/02/17 09:17 80 16 99 Room Air 12/02/17 09:17 98.1 87 16 183/88 (119) 100 Result Diagram: 12/02/17 0925 12/02/17 1530 Other Results Laboratory Tests Test 12/02/17 09:25 Prothromb Time International Ratio 1.0 RATIO Prothrombin Time 10.0 SEC (9.8-11.6) Imaging Last 24 hours Impressions Hip and Pelvis X-Ray 12/02/17919 Signed Impressions: Service Date/Time: November 10:02 - CONCLUSION: 1. Acute fracture involving the left femoral neck. 2. Degenerative changes involving the lower lumbar spine. Rashid Castañeda MD Chest X-Ray 12/02/17919 Signed Impressions: Service Date/Time: November 10:14 - CONCLUSION: 1. Faint periosteal reaction symmetrically along the lateral aspect of both second ribs probably represents a normal tendinous or ligamentous attachment. 2. Mild dextroscoliosis of the dorsal spine with associated degenerative changes. 3. Otherwise negative. Lungs are clear. No acute osseous injury. Ronny Mccoy MD Objective Remarks Bilateral upper extremities: No pain with range of motion. Neurovascularly intact distally Right lower extremity: No pain with range of motion neurovascularly intact distally Left lower extremity: Small bruise over patella no pain to palpation of her knee. Distally intact sensation with active dorsiflexion plantar flexion of foot. Pain to palpation of hip with tenderness motion. Patient is in Portillo's traction Assessment & Plan Assessment and Plan Subcapital fracture of left femur Surgery this morning for left hip hemiarthroplasty Sister to sign consents Bed rest until surgery. Nothing by mouth thiamine and folate Skyler Belcher Jr. Dec 03, 2017 06:54
[2017-12-03] MEDS ORDERED: TRANEXAMIC ACID INJ 1,275 MG in SODIUM CHLORIDE 0.9% INJ 100 ML IV ONE (07:00)
[2017-12-03 07:22] LABS: ALBUMIN 3.4 GM/DL (3.4-5.0); BICARBONATE 26.4 MEQ/L (21.0-32.0); BLOOD UREA NITROGEN 11 MG/DL (7-18); CALCIUM 8.6 MG/DL (8.5-10.1); CHLORIDE 99 MEQ/L (98-107); CREATININE 0.78 MG/DL (0.60-1.30); GLOMERULAR FILTRATION RATE 102 ML/MIN (>89); GLUCOSE,RANDOM 91 MG/DL (74-106); SODIUM (NA) 136 MEQ/L (136-145)
[2017-12-03 07:27] LABS: ALKALINE PHOSPHATASE 67 U/L (45-117); ALT (GPT) 38 U/L (12-78); AST (GOT) 86 U/L (15-37); TOTAL BILIRUBIN ADULT 2.4 MG/DL (0.2-1.0); TOTAL PROTEIN 6.6 GM/DL (6.4-8.2)
[2017-12-03] MEDS: DOCUSATE SODIUM 50 MG/SENNA 8.6 MG TAB PO SCH ×2 (09:00→21:03)
[2017-12-03] MEDS: SODIUM CHLORIDE 0.9% FLUSH 10 ML FLUSH IV FLUSH SCH ×2 (09:00→21:03)
[2017-12-03] MEDS: THIAMINE HCL 100 MG TAB PO SCH (09:00)
[2017-12-03] MEDS: FOLIC ACID 1 MG TAB PO SCH (09:00)
[2017-12-03] MEDS: ACETAMINOPHEN/HYDROcodone 325 MG/5 MG TAB PO PRN (09:05)
[2017-12-03] MEDS ORDERED: ceFAZolin 2 GM PREMIX 50 ML ONE (09:39)
[2017-12-03] MEDS ORDERED: GENTAMICIN SULFATE 80 MG/2 ML VIAL ONE (09:39)
[2017-12-03] MEDS ORDERED: VANCOMYCIN HCL 1000 MG VIAL ONE (09:39)
--- NOTE | 2017-12-03 09:48 | MB ---
cc: JES LACY MD, TODD DATE OF CONSULTATION 12/03/2017 REASON FOR CONSULTATION Displaced left femoral neck fracture. CONSULTING PHYSICIAN Dr. Lonnie Boyd. HISTORY OF PRESENT ILLNESS Handy is a 57-year-old male. He does have multiple medical problems. He lives at home with his . He had a fall at home. After his fall he had difficulty bearing weight. He presented to the emergency room via EMS. X-rays revealed a displaced left femoral neck fracture. The patient does have a history of mild early dementia. Currently he is awake but is unable to answer questions appropriately. His only complaint is his left hip. Pain is worse with movement. He denies dizziness, syncope or loss of consciousness. He describes a mechanical fall. PAST MEDICAL HISTORY ILLNESSES Early dementia. ALLERGIES No known drug allergies. MEDICATIONS Please see the EMR for a complete list of inpatient medications. This was reviewed. SURGERIES None. FAMILY HISTORY Not obtainable secondary to the patient's confusion. REVIEW OF SYSTEMS Unobtainable. SOCIAL HISTORY The patient lives at home with his . He reportedly drinks approximately eight beers a day. He is retired and relatively sedentary according to his . PHYSICAL EXAMINATION GENERAL: The patient is a thin 57-year-old male. He is awake but confused. He appears well-developed, well-nourished. He is in no acute distress. VITAL SIGNS: Temperature 99.1, pulse 98, respirations 21, blood pressure 158/98. O2 sat is 98% on room air. HEAD: The patient is normocephalic. Pupils are equal. NECK: Soft, nontender. Trachea is midline. ABDOMEN: Soft, nontender, nondistended. EXTREMITIES: Examination of bilateral upper extremities reveals no obvious pain or deformity with shoulder, elbow or wrist motion. He has intact sensation in all fingers. He has good capillary refill in all fingers. Skin is intact. Examination of right leg reveals no pain with hip, knee or ankle motion. Skin is intact. Dorsalis pedis pulse is palpable. Sensation is grossly intact. Examination of left leg reveals the left leg is shortened and externally rotated. He has pain with any attempted hip motion. He has no tenderness around his knee, tibia or ankle. Skin is intact. Dorsalis pedis pulse is palpable. X-RAYS X-rays of the left hip were reviewed. X-rays reveal a displaced left femoral neck fracture. LABORATORY The patient has a white blood cell count 12.4, hemoglobin of 15.2 and hematocrit 44.1. INR is 1.0. BUN is 13 and creatinine is 1.02. IMPRESSION 1. Early dementia. 2. Alcohol abuse. 3. Displaced left femoral neck fracture. PLAN I discussed the treatment options both with the patient as well as his . At this point his will need to consent for surgery given the patient's confusion. I discussed with her treatment options including left hip hemiarthroplasty versus left total hip arthroplasty. The patient overall is relatively sedentary. With his confusion as well as daily alcohol consumption I would recommend a hemiarthroplasty as it would have a lower risk of complications. The risks of surgery include bleeding, infection, injuries to arteries, nerves and blood vessels, hip dislocation, leg length discrepancies, as well as medical complications including blood clot, stroke, heart attack and . All questions were answered. I will plan on surgery today. A mid-level provider in my office, nurse practitioner or PA, may see this patient on a follow-up basis and continue to implement the objective of this plan including: Starting or adjusting medications, injections of muscle, tendon, bursa or joints, cast application, orthotic or brace application, physical therapy, further radiographic studies including x-ray, MRI, CT, ultrasounds or bone scan, vascular studies, neurologic studies, or other specialist consultations, and proceeding with surgical management as appropriate. MD LANCE Murray/BARBIE /7:14 AM /9:31 AM
--- NOTE | 2017-12-03 11:14 | PD.OP ---
cc: Chong Villalta MD Operative Report Date of Surgery: Dec 03, 2017 Preoperative Diagnosis: Displaced left femoral neck fracture Postoperative Diagnosis: Procedure: Left hip bipolar arthroplasty Anesthesia: Gen. Surgeon: Chong Villalta Gas Combustion Engineer(s): LEW Cantu PA-C The surgical procedure was assisted by my physician zoning assistant. My P.A. presence was necessary throughout this case for the manipulation and positioning of the surgical extremity. My P.A. was assisting me throughout the duration of this procedure. The skill set of a physician zoning assistant was medically necessary to complete this procedure. During the surgical case the surgical services assistant was working at the back table and the physician zoning assistant was directly assisting me. Operation and Findings: PLAN OF ACTIVITY Weight bear as tolerated. IMPLANTS USED DePuy Corail size [14] stem with size [51] bipolar head and [+1] neck. DRAIN: 7 mm Chris-Spears drain DETAILS OF PROCEDURE This patient was brought into the operating room and placed on the OR table. The patient was given anesthesia. The patient received IV antibiotics. The patient was then placed in lateral decubitus position. The hip and leg were prepped with alcohol, followed by Hibiclens and draped in a usual sterile fashion. Clean air was used for this procedure. Time out procedure was performed. The procedure began with a 5 inch incision over the posterolateral hip. The subcutaneous tissue was dissected with the Bovie. The iliotibial band were split in line with fibers. The Charnley retractor was placed. The piriformis and external rotators were released from the femur and tagged with a #1 Vicryl suture. The capsule is now incised and tagged with #1 Vicryl. The femoral neck fracture was now visualized. A corkscrew was now used to remove the femoral head. The femoral head was sized and measured. Soft tissue was now protected. The hip skid was placed underneath the femoral neck. An oscillating saw was used to make a femoral neck cut. At this point attention was turned to preparation of the proximal femur. A box osteotome was used to remove the lateral cortex of the femoral neck. The T- handle reamer was used to open the femoral canal. Next, the canal was broached. A lateralizing reamer was used to help lateralize the prosthesis. At this point a trial head and neck were placed. The hip was reduced. The patient was found to have excellent stability with good range of motion. Trial components were removed. Soft tissue and bone were thoroughly irrigated. A Corail stem was now opened. The stem was now impacted into the proximal femur. Care was taken to keep appropriate anteversion. The head and neck were now impacted onto the stem. The hip was again reduced. The hip was found to have good range of motion and good stability. Leg lengths were clinically equal. The wound was thoroughly irrigated. The capsule, piriformis and iliotibial band were closed with #1 Vicryl. Subcutaneous tissue was closed with 3-0 Vicryl. The skin was closed with cherie. A sterile dressing was applied with Primapore. The patient was placed into a knee immobilizer. The patient was awakened and transferred to the recovery room in stable condition. Needle and sponge counts were correct. Chong Villalta MD Dec 03, 2017 11:14
[2017-12-03] MEDS ORDERED: MORPHINE SULFATE 4 MG/ML INJ IV PUSH PRN (11:15)
[2017-12-03] MEDS ORDERED: cefTRIAXone INJ 2,000 MG in SODIUM CHLORIDE 0.9% INJ 100 ML IV SCH (11:30)
[2017-12-03] MEDS ORDERED: ERGOCALCIFEROL (VIT D2) 50,000 UNIT CAP PO ONE (11:30)
[2017-12-03] MEDS ORDERED: cloNIDine HCL 0.1 MG TAB PO PRN (11:30)
[2017-12-03] MEDS ORDERED: WALKER/ADULT/FO1 MIS (11:38)
[2017-12-03] MEDS ORDERED: XARE10TA PO (11:38)
[2017-12-03] MEDS ORDERED: HYDR-3583 PO ×2 (11:38→11:40)
--- NOTE | 2017-12-03 11:39 | HHI.FF ---
Face to Face Verification Diagnosis: (1) Left displaced femoral neck fracture (2) Status post hip hemiarthroplasty Physical Therapy Gait training Hip: Total hip, Protocol: Left, Posterior hip precautions, Progress to weight bearing Canvas Knee Splint: Other (only wear while in bed) Left LE Weight Bearing: WB as tolerated Nursing Dressing Changes: Daily dressing change, Coverderm/Primapore (begin adding xeroform POD 10) I have seen patient Scarlett Moy on 12/03/17. My clinical findings support the need for the requested home health care services because: Ltd mobility - disease progression I certify that my clinical findings support that this patient is homebound because: Post-op weakness Lenny Villalobos/First Ari MUIR Dec 03, 2017 11:39
--- NOTE | 2017-12-03 11:42 | PD.ORT.PN ---
Subjective Subjective Remarks POD 0 s/p Left hip hemiarthroplasty stable in PACU Objective Vitals Vital Signs Date Time Temp Pulse Resp B/P (MAP) Pulse Ox O2 Delivery O2 Flow Rate FiO2 12/03/17 08:00 98.5 79 19 174/104 (127) 100 12/03/17 04:50 98.8 79 18 152/94 (113) 99 12/03/17 02:58 84 12/03/17 02:06 143/79 (100) 12/03/17 00:55 99.1 98 21 158/98 (118) 98 12/03/17 00:46 180/85 (116) 12/02/17 20:00 97.3 91 16 154/92 (112) 98 12/02/17 19:58 104 12/02/17 16:30 98.2 87 18 171/79 (109) 98 12/02/17 16:08 97.8 92 16 132/81 (98) 99 12/02/17 14:50 16 12/02/17 13:17 97.8 96 16 147/77 (100) 98 Room Air I/O 12/02/17 12/02/17 12/02/17 12/03/17 12/03/17 12/03/17 07:00 15:00 23:00 07:00 15:00 23:00 Intake Total 0 ml Balance 0 ml Intake Oral 0 ml # Voids 2 # Bowel Movements 0 Result Diagram: 12/02/1792412/03/17 0550 Imaging Last 24 hours Impressions Hip and Pelvis X-Ray 12/02/17919 Signed Impressions: Service Date/Time: November 10:02 - CONCLUSION: 1. Acute fracture involving the left femoral neck. 2. Degenerative changes involving the lower lumbar spine. Rashid Castañeda MD Chest X-Ray 12/02/17919 Signed Impressions: Service Date/Time: November 10:14 - CONCLUSION: 1. Faint periosteal reaction symmetrically along the lateral aspect of both second ribs probably represents a normal tendinous or ligamentous attachment. 2. Mild dextroscoliosis of the dorsal spine with associated degenerative changes. 3. Otherwise negative. Lungs are clear. No acute osseous injury. Ronny Mccoy MD Objective Remarks LLE: dressings clean and dry. intact. +drain. +CKS. Assessment & Plan Assessment and Plan 1) Subcapital fracture of left femur s/p hemiarthroplasty - POD 0 -WBAT -posterior hip precautions -daily dressing changes of incision with primapore. begin adding xeroform POD 10 -DC drain POD 2 -knee brace while in bed. -CM for rehab vs home with [facility] -f/u with Villalta or PA in 2 weeks Lenny Villalobos/Supervisor [employer] PA Dec 03, 2017 11:42
[2017-12-03] MEDS ORDERED: *ENALAPRILAT 1.25 MG/ML VIAL PERIprocedural Use ONLY ONE (11:46)
[2017-12-03] MEDS ORDERED: NEOSTIGMINE 5 MG/5 ML SYRINGE IV PUSH ONE (12:00)
[2017-12-03] MEDS ORDERED: ROCURONIUM INJ 50 MG/5 ML SYRINGE IV PUSH ONE (12:00)
[2017-12-03] MEDS ORDERED: ONDANSETRON HCL 4 MG/2 ML VIAL IV PUSH ONE (12:00)
[2017-12-03] MEDS ORDERED: DEXAMETHASONE SOD PHOS 4 MG/ML VIAL IV ONE (12:00)
[2017-12-03] MEDS ORDERED: GLYCOPYRROLATE 1 MG/5 ML SYRINGE IV PUSH ONE (12:00)
[2017-12-03] MEDS ORDERED: METOPROLOL TARTRATE 5 MG/5 ML VIAL IV ONE (12:00)
[2017-12-03] MEDS ORDERED: Post-op Orders (for Pharmacy) XX ONE (12:00)
[2017-12-03] MEDS ORDERED: PROPOFOL 200 MG/20 ML AMP IV ONE (12:00)
[2017-12-03] MEDS ORDERED: *LABETALOL HCL 100 MG/20 ML VIAL PERIprocedural Use ONLY ONE (12:09)
--- NOTE | 2017-12-03 13:08 | RADRPT ---
EXAM DATE/TIME: 12/03/2017 11:51 [facility] COMPARISON: HIP LEFT (AP&LAT 2/3VWS) W AP PELVIS, December 02, 2017, 10:02. INDICATIONS : Post op left hip surgery MEDICAL HISTORY : None. SURGICAL HISTORY : None. ENCOUNTER: Initial ACUITY: 1 day PAIN SCORE: Non-responsive. LOCATION: Left hip and pelvis FINDINGS: Examination of the left hip was performed with AP Pelvis. Left femoral neck fracture has been repaire d with a total hip arthroplasty. Femoral and acetabular components are appropriately positioned no fr acture. Small RENITA type drain projects just lateral to the greater trochanter. CONCLUSION: Left femoral neck fracture repaired with total hip arthroplasty as above. No fracture or disloca tion Ronny Mccoy MD on December 03, 2017 at 13:05 Board Certified Radiologist. This report was verified electronically.
[2017-12-03] MEDS ORDERED: DO NOT ADM ANY ANTICOAGULANT DRUGS PRN (13:15)
[2017-12-03] MEDS: ACETAMINOPHEN/HYDROcodone 325 MG/7.5 MG TAB PO PRN ×2 (13:48→18:16)
[2017-12-03 15:46] LABS: RPR SCREEN FOR REFLEX NON-REACTIVE (NON-REACTVE)
[2017-12-03] MEDS: ceFAZolin 2 GM PREMIX 50 ML IV SCH ×2 (16:30→23:21)
--- NOTE | 2017-12-03 17:47 | HHI.PR ---
Subjective Remarks at bedside states is more back to his baseline mental status today. Patient is afebrile. Patient unable to express himself. Objective Vitals Vital Signs Date Time Temp Pulse Resp B/P (MAP) Pulse Ox O2 Delivery O2 Flow Rate FiO2 12/03/17 17:46 98 Nasal Cannula 2.00 12/03/17 13:20 95.9 53 18 140/78 (98) 98 12/03/17 12:29 98.0 72 19 170/84 (112) 100 Nasal Cannula 2 12/03/17 12:15 82 17 163/75 (104) 100 Nasal Cannula 2 12/03/17 12:00 60 18 177/95 (122) 100 Nasal Cannula 5 12/03/17 11:45 58 20 180/81 (114) 100 Nasal Cannula 5 12/03/17 11:33 98.1 62 15 151/76 (101) 99 Nasal Cannula 5 12/03/17 08:00 98.5 79 19 174/104 (127) 100 12/03/17 04:50 98.8 79 18 152/94 (113) 99 12/03/17 02:58 84 12/03/17 02:06 143/79 (100) 12/03/17 00:55 99.1 98 21 158/98 (118) 98 12/03/17 00:46 180/85 (116) 12/02/17 20:00 97.3 91 16 154/92 (112) 98 12/02/17 19:58 104 I/O 12/02/17 12/02/17 12/02/17 12/03/17 12/03/17 12/03/17 07:00 15:00 23:00 07:00 15:00 23:00 Intake Total 0 ml 1000 ml Output Total 100 ml Balance 0 ml 900 ml Intake Oral 0 ml Other 1000 ml Output Estimated Blood Loss 100 ml # Voids 2 # Bowel Movements 0 Result Diagram: 12/02/1725 12/03/17 0550 Imaging Last 72 hours Impressions Hip and Pelvis X-Ray 12/03/17 1110 Signed Impressions: Service Date/Time: Sunday, December 03, 2017 11:51 - CONCLUSION: Left femoral neck fracture repaired with total hip arthroplasty as above. No fracture or dislocation Ronny Mccoy MD Hip and Pelvis X-Ray 2/8/18 0920 Signed Impressions: Service Date/Time: November 10:02 - CONCLUSION: 1. Acute fracture involving the left femoral neck. 2. Degenerative changes involving the lower lumbar spine. Rashid Castañeda MD Chest X-Ray 12/02/17919 Signed Impressions: Service Date/Time: November 10:14 - CONCLUSION: 1. Faint periosteal reaction symmetrically along the lateral aspect of both second ribs probably represents a normal tendinous or ligamentous attachment. 2. Mild dextroscoliosis of the dorsal spine with associated degenerative changes. 3. Otherwise negative. Lungs are clear. No acute osseous injury. Ronny Mccoy MD Head CT 12/02/17 Signed Impressions: Service Date/Time: November 14:59 - CONCLUSION: 1. Cerebral atrophy, most prominent in the anterior aspect of the left temporal lobe. 2. Small retention cyst in both maxillary antra. Osseous structures are intact. Ronny Mccoy MD Brain MRI 12/02/17 Signed Impressions: Service Date/Time: November 14:09 - CONCLUSION: 1. Negative examination. Corbin Ott MD Objective Remarks GENERAL: This is a well-nourished, well-developed patient, in no apparent distress. SKIN: No rashes, ecchymoses or lesions. Cool and dry. HEAD: Atraumatic. Normocephalic. No temporal or scalp tenderness. EYES: Pupils equal round and reactive. Extraocular motions intact. No scleral icterus. No injection or drainage. ENT: Nose without bleeding, purulent drainage or septal hematoma. Throat without erythema, tonsillar hypertrophy or exudate. Uvula midline. Airway patent. NECK: Trachea midline. No JVD or lymphadenopathy. Supple, nontender, no meningeal signs. CARDIOVASCULAR: Regular rate and rhythm without murmurs, gallops, or rubs. RESPIRATORY: Clear to auscultation. Breath sounds equal bilaterally. No wheezes , rales, or rhonchi. GASTROINTESTINAL: Abdomen soft, non-tender, nondistended. No hepato-splenomegaly , or palpable masses. No guarding. MUSCULOSKELETAL: LLE: dressings clean and dry. intact. +drain. +CKS. Negative Homans NEUROLOGICAL: Awake and alert. Cranial nerves II through XII intact. Motor and sensory grossly within normal limits. Five out of 5 muscle strength in all muscle groups. Normal speech A/P Problem List: (1) Left displaced femoral neck fracture ICD Code: S72.002A - Fracture of unspecified part of neck of left femur, initial encounter for closed fracture Status: Acute (2) Early onset Alzheimer's dementia ICD Code: G30.0 - Alzheimer's disease with early onset; F02.80 - Dementia in other diseases classified elsewhere without behavioral disturbance (3) Hyponatremia ICD Code: E87.1 - Hypo-osmolality and hyponatremia (4) Leukocytosis ICD Code: D72.829 - Elevated white blood cell count, unspecified (5) Fall at home ICD Code: W19.XXXA - Unspecified fall, initial encounter; Y92.009 - Unspecified place in unspecified non-institutional (private) residence as the place of occurrence of the external cause Assessment and Plan (1) Left displaced femoral neck fracture ICD Code: S72.002A - Fracture of unspecified part of neck of left femur, initial encounter for closed fracture Status: Acute Plan: Patient status post fall at home. Pelvis x-ray showed an acute fracture involving the left femoral neck. Orthopedic surgery consulted. Patient for OR in a.m. 12/03 the patient is status post left hip bipolar arthroplasty. Pain management as per orthopedic surgery. DVT prophylaxis as per orthopedic surgery. (2) Early onset Alzheimer's dementia ICD Code: G30.0 - Alzheimer's disease with early onset; F02.80 - Dementia in other diseases classified elsewhere without behavioral disturbance Plan: As per the patient's the patient is more confused than usual. We will order head CT, MRI of the brain, B12, RPR, HIV, TSH 12/03 CT of the head shows cerebral atrophy, most prominent in the anterior aspect of the left temporal lobe. Small retention cyst in both maxillary antra. Osseous structures are intact. MRI negative. TSH normal, normal B12, RPR screen nonreactive, HIV 1 and 2 antibody negative. Patient likely could have permanent cerebral damage secondary to alcohol abuse. (3) Hyponatremia ICD Code: E87.1 - Hypo-osmolality and hyponatremia Plan: Suspect hypovolemic hyponatremia. Place on IV normal saline monitor BMP. 12/03 sodium back to normal levels after IV normal saline administration. (4) Leukocytosis ICD Code: D72.829 - Elevated white blood cell count, unspecified Plan: Check urinalysis. Chest x-ray did not show any evidence of pneumonia. 12/03 UA positive. Will start the patient on IV Rocephin pending cultures. (5) Fall at home ICD Code: W19.XXXA - Unspecified fall, initial encounter; Y92.009 - Unspecified place in unspecified non-institutional (private) residence as the place of occurrence of the external cause Plan: Physical therapy evaluation. Follow at home likely induced by hyponatremia worsened mental status. Assessment and Plan DVT prophylaxis: Heparin subcutaneously. Discharge Planning Continue to monitor the medical floor. Discharge pending orthopedic clearance. Neurology consulted. Problem Qualifiers (1) Early onset Alzheimer's dementia: Qualified Codes: G30.0 - Alzheimer's disease with early onset; F02.80 - Dementia in other diseases classified elsewhere without behavioral disturbance (2) Leukocytosis: Qualified Codes: D72.829 - Elevated white blood cell count, unspecified Hossein Paniagua MD Dec 03, 2017 17:47
[2017-12-03] MEDS: VANCOMYCIN INJ 1,000 MG in SODIUM CHLOR 0.9% 250 ML INJ 250 ML IV SCH (21:03)
[2017-12-04] VITALS (10 sets, daily range): BP systolic 118–139; BP diastolic 64–80; PULSE 61–83; RESP 16–20; TEMP 96.8–98.5; O2SAT 97–99
[2017-12-04] MEDS: SODIUM CHLOR 0.45% 1000 ML INJ 1,000 ML IV SCH ×2 (04:50→18:10)
[2017-12-04] MEDS: ceFAZolin 2 GM PREMIX 50 ML IV SCH (04:58)
[2017-12-04] MEDS: ACETAMINOPHEN/HYDROcodone 325 MG/7.5 MG TAB PO PRN ×3 (04:58→16:10)
[2017-12-04 06:30] LABS: BASOPHIL % 0.4 % (0.0-2.0); HEMATOCRIT 35.1 % (39.0-51.0); HEMOGLOBIN 12.2 GM/DL (13.0-17.0); LYMPH % 10.7 % (9.0-44.0); LYMPHOCYTE # 1.1 TH/MM3 (1.0-4.8); MEAN CELL VOLUME 95.3 FL (80.0-100.0); MEAN CORPUSCULAR HEMOGLOBIN 33.2 PG (27.0-34.0); MEAN CORPUSCULAR HGB CONC 34.9 % (32.0-36.0); MEAN PLATELET VOLUME 9.3 FL (7.0-11.0); NEUT % 78.9 % (16.0-70.0); PLATELET COUNT 143 TH/MM3 (150-450); RED BLOOD COUNT 3.69 MIL/MM3 (4.50-5.90); RED CELL DISTRIBUTION WIDTH 12.9 % (11.6-17.2); WHITE BLOOD COUNT 10.2 TH/MM3 (4.0-11.0)
--- NOTE | 2017-12-04 07:02 | PD.ORT.PN ---
Subjective Subjective Remarks Patient resting comfortably this morning. Denies chest pain or shortness of breath. States he was able to take a few steps yesterday with therapy. Objective Vitals Vital Signs Date Time Temp Pulse Resp B/P (MAP) Pulse Ox O2 Delivery O2 Flow Rate FiO2 12/04/17 04:50 96.9 82 19 134/79 (97) 98 12/04/17 04:00 64 12/04/17 03:57 97 12/04/17 00:55 96.8 72 18 118/64 (82) 97 12/04/17 00:14 61 12/03/17 20:40 97.2 77 18 112/67 (82) 97 12/03/17 20:11 78 12/03/17 17:46 98 21 12/03/17 16:00 96.6 70 18 114/70 (85) 98 12/03/17 13:20 95.9 53 18 140/78 (98) 98 12/03/17 12:29 98.0 72 19 170/84 (112) 100 Nasal Cannula 2 12/03/17 12:15 82 17 163/75 (104) 100 Nasal Cannula 2 12/03/17 12:00 60 18 177/95 (122) 100 Nasal Cannula 5 12/03/17 11:45 58 20 180/81 (114) 100 Nasal Cannula 5 12/03/17 11:33 98.1 62 15 151/76 (101) 99 Nasal Cannula 5 12/03/17 08:00 98.5 79 19 174/104 (127) 100 I/O 12/03/17 12/03/17 12/03/17 12/04/17 12/04/17 12/04/17 07:00 15:00 23:00 07:00 15:00 23:00 Intake Total 0 ml 1000 ml 360 ml Output Total 100 ml 25 ml Balance 0 ml 900 ml 335 ml Intake Oral 0 ml 360 ml Other 1000 ml Output Drainage Total 25 ml Estimated Blood Loss 100 ml # Voids 2 2 1 # Bowel Movements 0 0 Result Diagram: 12/04/17 0609 12/03/17 0550 Imaging Last 24 hours Impressions Hip and Pelvis X-Ray 12/02/17 0920 Signed Impressions: Service Date/Time: November 10:02 - CONCLUSION: 1. Acute fracture involving the left femoral neck. 2. Degenerative changes involving the lower lumbar spine. Rashid Castañeda MD Chest X-Ray 12/02/17 0920 Signed Impressions: Service Date/Time: November 10:14 - CONCLUSION: 1. Faint periosteal reaction symmetrically along the lateral aspect of both second ribs probably represents a normal tendinous or ligamentous attachment. 2. Mild dextroscoliosis of the dorsal spine with associated degenerative changes. 3. Otherwise negative. Lungs are clear. No acute osseous injury. Ronny Mccoy MD Objective Remarks Awake, alert, no acute distress LLE: dressings clean and dry. intact. +drain. +CKS. Negative Homans Assessment & Plan Assessment and Plan 1) Subcapital fracture of left femur s/p hemiarthroplasty - POD 1 -WBAT -posterior hip precautions -daily dressing changes of incision with primapore. begin adding xeroform POD 10 -DC drain POD 2 -knee brace while in bed. -CM for rehab vs home with [facility] -f/u with [facility] or [facility] in 2 weeks Emilie Wesley MD Dec 04, 2017 07:02
[2017-12-04 07:25] LABS: ALBUMIN 2.8 GM/DL (3.4-5.0); ALKALINE PHOSPHATASE 55 U/L (45-117); ALT (GPT) 31 U/L (12-78); AST (GOT) 40 U/L (15-37); BICARBONATE 25.9 MEQ/L (21.0-32.0); BLOOD UREA NITROGEN 12 MG/DL (7-18); CALCIUM 8.5 MG/DL (8.5-10.1); CHLORIDE 100 MEQ/L (98-107); GLOMERULAR FILTRATION RATE 99 ML/MIN (>89); GLUCOSE,RANDOM 104 MG/DL (74-106); MAGNESIUM 1.9 MG/DL (1.5-2.5); PHOSPHORUS 3.3 MG/DL (2.5-4.9); SODIUM (NA) 135 MEQ/L (136-145); TOTAL BILIRUBIN ADULT 1.1 MG/DL (0.2-1.0); TOTAL PROTEIN 5.8 GM/DL (6.4-8.2)
[2017-12-04] MEDS: CHOLECALCIFEROL (VIT D3) 5000 UNIT CAP PO SCH (10:11)
[2017-12-04] MEDS: VANCOMYCIN INJ 1,000 MG in SODIUM CHLOR 0.9% 250 ML INJ 250 ML IV SCH (10:11)
[2017-12-04] MEDS: DOCUSATE SODIUM 50 MG/SENNA 8.6 MG TAB PO SCH ×2 (10:11→23:10)
[2017-12-04] MEDS: FOLIC ACID 1 MG TAB PO SCH (10:11)
[2017-12-04] MEDS: SODIUM CHLORIDE 0.9% FLUSH 10 ML FLUSH IV FLUSH SCH ×2 (10:12→21:00)
[2017-12-04] MEDS: THIAMINE HCL 100 MG TAB PO SCH (10:12)
--- NOTE | 2017-12-04 11:58 | MB ---
cc: RUTHY LEAL M.D. DATE OF CONSULTATION: 12/04/2017. REASON FOR CONSULTATION: Dementia. HISTORY OF PRESENT ILLNESS: The patient is a 57-year-old man diagnosed with dementia about five years ago who came in because of a fall and had a hip fracture and had arthroplasty of the left femur yesterday. I am asked to evaluate him for early onset dementia. This patient's is in the room and the patient's states that he has been having memory issues for about five years. He saw a neurologist in the past who put him on vitamins but never put him on any medications. He is not significantly agitated except at night before last but he is fine now and he is sitting in a chair very pleasant. PAST MEDICAL HISTORY: 1. Dementia. 2. Hypertension. PAST SURGICAL HISTORY: 1. Hip recently a day ago. ACTIVE MEDICATIONS AT HOME: None. ALLERGIES: NONE. PHYSICAL EXAMINATION: VITAL SIGNS: On exam, vital signs are temperature 98.5, pulse 71, respiratory rate 16, blood pressure 130/77. He is awake and alert. He knows his date of . He cannot tell me his age. He can tell me his 's name. He does not know how long they have been together. He does not know the name of the hospital. He does not know the month, the date or the day of the week. He does not know how to spell "world". He cannot tell me how many quarters are in $1.25. His simple speech, "yes" and "no" at times has trouble getting words out. His pupils are reactive. His face is symmetrical. Motor-torres, no lateralizing weakness in the arms. Legs are deferred due to his surgery. DTRs are 1+. Gait again is not checked. LABS: Reviewed. His B12 is 239, low. Thyroid panel is normal. RPR and HIV are negative. IMAGING STUDIES: MRI brain 12/02/17 shows negative findings. IMPRESSION: 1. Dementia ongoing for a number of years, may be worse with the patient being out of his normal environment. RECOMMENDATIONS: 1. Recommend with the B12 deficiency starting him on B12. I ordered 1000 micrograms IM daily for a week and then weekly for a month and then monthly thereafter. 2. Start him on Namenda 5 milligrams at bedtime for one week and then in one week increase to twice a day dosing. 3. Have him follow up in my office in two weeks. 4. Continue current care. MD GLENDY Ye/ONELIA /11:15 AM /11:50 AM
[2017-12-04] MEDS: ENOXAPARIN SODIUM 30 MG/0.3 ML SYRINGE SQ SCH (12:29)
[2017-12-04] MEDS: CYANOCOBALAMIN 1000 MCG/ML VIAL IM SCH (12:37)
--- NOTE | 2017-12-04 18:23 | HHI.PR ---
Subjective Remarks Pain controlled. at bedside. Patient seems to be more alert. Objective Vitals Vital Signs Date Time Temp Pulse Resp B/P (MAP) Pulse Ox O2 Delivery O2 Flow Rate FiO2 12/04/17 16:00 97.5 74 17 131/80 (97) 98 12/04/17 11:45 97.6 81 18 129/80 (96) 99 12/04/17 11:45 98 12/04/17 10:57 83 12/04/17 08:00 98.5 71 16 130/77 (94) 97 12/04/17 04:50 96.9 82 19 134/79 (97) 98 12/04/17 04:00 64 12/04/17 03:57 97 12/04/17 00:55 96.8 72 18 118/64 (82) 97 12/04/17 00:14 61 12/03/17 20:40 97.2 77 18 112/67 (82) 97 12/03/17 20:11 78 I/O 12/03/17 12/03/17 12/03/17 12/04/17 12/04/17 12/04/17 06:59 14:59 22:59 06:59 14:59 22:59 Intake Total 0 ml 1000 ml 360 ml 240 ml 550 ml 1875 ml Output Total 100 ml 25 ml 450 ml Balance 0 ml 900 ml 335 ml 240 ml 550 ml 1425 ml Intake Oral 0 ml 360 ml 240 ml 1200 ml IV Total 550 ml 675 ml Other 1000 ml Output Urine Total 400 ml Drainage Total 25 ml 50 ml Estimated Blood Loss 100 ml # Voids 2 3 0 # Bowel Movements 0 0 0 Result Diagram: 12/04/17 0609 12/04/17 0609 Imaging Last Impressions Hip and Pelvis X-Ray 12/03/17 1110 Signed Impressions: Service Date/Time: Sunday, December 03, 2017 11:51 - CONCLUSION: Left femoral neck fracture repaired with total hip arthroplasty as above. No fracture or dislocation Ronny Mccoy MD Chest X-Ray 12/02/17 0920 Signed Impressions: Service Date/Time: November 10:14 - CONCLUSION: 1. Faint periosteal reaction symmetrically along the lateral aspect of both second ribs probably represents a normal tendinous or ligamentous attachment. 2. Mild dextroscoliosis of the dorsal spine with associated degenerative changes. 3. Otherwise negative. Lungs are clear. No acute osseous injury. Ronny Mccoy MD Head CT 12/02/17 0000 Signed Impressions: Service Date/Time: November 14:59 - CONCLUSION: 1. Cerebral atrophy, most prominent in the anterior aspect of the left temporal lobe. 2. Small retention cyst in both maxillary antra. Osseous structures are intact. Ronny Mccoy MD Brain MRI 12/02/17 Signed Impressions: Service Date/Time: November 14:09 - CONCLUSION: 1. Negative examination. Corbin Ott MD Objective Remarks GENERAL: This is a well-nourished, well-developed patient, in no apparent distress. SKIN: No rashes, ecchymoses or lesions. Cool and dry. HEAD: Atraumatic. Normocephalic. No temporal or scalp tenderness. EYES: Pupils equal round and reactive. Extraocular motions intact. No scleral icterus. No injection or drainage. ENT: Nose without bleeding, purulent drainage or septal hematoma. Throat without erythema, tonsillar hypertrophy or exudate. Uvula midline. Airway patent. NECK: Trachea midline. No JVD or lymphadenopathy. Supple, nontender, no meningeal signs. CARDIOVASCULAR: Regular rate and rhythm without murmurs, gallops, or rubs. RESPIRATORY: Clear to auscultation. Breath sounds equal bilaterally. No wheezes , rales, or rhonchi. GASTROINTESTINAL: Abdomen soft, non-tender, nondistended. No hepato-splenomegaly , or palpable masses. No guarding. MUSCULOSKELETAL: LLE: dressings clean and dry. intact. +drain. +CKS. Negative Homans NEUROLOGICAL: Awake and alert. Cranial nerves II through XII intact. Motor and sensory grossly within normal limits. Five out of 5 muscle strength in all muscle groups. Normal speech Procedures Left hip bipolar arthroplasty Medications and IVs Current Medications Medications (Trade) Dose Ordered Sig/Robert Route Start Time Stop Time Status Last Admin Sodium Chloride 1,000 ml @ 75 mls/hr [id number] IV 12/02/17 12:50 12/03/17 13:49 (NS Flush) 2 ml UNSCH PRN IV FLUSH 12/02/17 13:00 (NS Flush) 2 ml BID IV FLUSH 12/02/17 21:00 12/04/17 10:12 (Tylenol) 650 mg Q4H PRN PO 12/02/17 13:00 (Zofran Inj) 4 mg Q6H PRN IVP 12/02/17 13:00 (Narcan Inj) 0.4 mg UNSCH PRN IV PUSH 12/02/17 13:00 (Melinda-Colace) 1 tab BID PO 12/02/17 21:00 12/04/17 10:11 (Milk Of Magnesia Liq) 30 ml Q12H PRN PO 12/02/17 13:00 (Senokot) 17.2 mg Q12H PRN PO 12/02/17 13:00 (Dulcolax Supp) 10 mg DAILY PRN RECTAL 12/02/17 13:00 (Lactulose Liq) 30 ml DAILY PRN PO 12/02/17 13:00 (Morphine Inj) 2 mg Q3H PRN IV PUSH 12/02/17 13:00 12/03/17 00:07 (Romazicon Inj) 0.2 mg Q1M PRN IV PUSH 12/02/17 13:15 (Ativan) 1 mg Q4H PRN PO 12/02/17 13:15 (Ativan Inj) 1 mg Q4H PRN IV PUSH 12/02/17 13:15 12/02/17 20:00 (Ativan) 2 mg Q2H PRN PO 12/02/17 13:15 (Ativan Inj) 2 mg Q2H PRN IV PUSH 12/02/17 13:15 12/03/17 01:06 (Ativan Inj) 2 mg Q1H PRN IV PUSH 12/02/17 13:15 (Ativan Inj) 2 mg Q15M PRN IV PUSH 12/02/17 13:15 Lactated Ringer's 1,000 ml @ 30 mls/hr Q24H PRN IV 12/03/17 00:30 12/06/17 00:29 (Betadine 5% Antisepsis Kit) 1 applic [employer] PRN EACH NARE 12/03/17 00:30 2 00:29 (Chlorhexidine 2% Cloth) 3 pack [employer] PRN TOPICAL 12/03/17 00:30 12/06/17 00:29 (Folate) 1 mg DAILY PO 12/03/17 09:00 12/04/17 10:11 (Vitamin B1) 100 mg DAILY PO 12/03/17 09:00 12/04/17 10:12 (Lovenox Inj) 30 mg Q24H SQ 12/04/17 11:27 12/04/17 12:29 ([place]lake 7.5-325 Mg) 1 tab Q3H PRN PO 12/03/17 13:00 12/04/17 16:10 (Morphine Inj) 3 mg Q3H PRN IV PUSH 12/03/17 11:15 (Vitamin D3) 5,000 units DAILY PO 12/04/17 09:00 12/04/17 10:11 (Catapres) 0.1 mg Q6H PRN PO 12/03/17 11:30 (Norvasc) 10 mg DAILY PO 12/03/17 12:00 12/04/17 10:12 (Vitamin B12 Inj) 1,000 mcg DAILY IM 12/04/17 12:00 12/10/17 09:01 12/04/17 12:37 (Namenda) 5 mg DAILY PO 12/05/17 09:00 (Vitamin B12 Inj) 1,000 mcg Q7D IM 12/17/17 09:00 01/07/18 09:01 (Vitamin B12 Inj) 1,000 mcg Q30D IM 02/07/18 09:00 A/P Problem List: (1) Left displaced femoral neck fracture ICD Code: S72.002A - Fracture of unspecified part of neck of left femur, initial encounter for closed fracture Status: Acute (2) Early onset Alzheimer's dementia ICD Code: G30.0 - Alzheimer's disease with early onset; F02.80 - Dementia in other diseases classified elsewhere without behavioral disturbance (3) Hyponatremia ICD Code: E87.1 - Hypo-osmolality and hyponatremia (4) Leukocytosis ICD Code: D72.829 - Elevated white blood cell count, unspecified (5) Fall at home ICD Code: W19.XXXA - Unspecified fall, initial encounter; Y92.009 - Unspecified place in unspecified non-institutional (private) residence as the place of occurrence of the external cause Assessment and Plan (1) Left displaced femoral neck fracture Plan: Patient status post fall at home. Pelvis x-ray showed an acute fracture involving the left femoral neck. Orthopedic surgery consulted. Patient for OR in a.m. SP left hip bipolar arthroplasty. Pain management as per orthopedic surgery. DVT prophylaxis as per orthopedic surgery. (2) Early onset Alzheimer's dementia ICD Code: G30.0 - Alzheimer's disease with early onset; F02.80 - Dementia in other diseases classified elsewhere without behavioral disturbance Plan: As per the patient's the patient is more confused than usual. We will order head CT, MRI of the brain, B12, RPR, HIV, TSH 12/03 CT of the head shows cerebral atrophy, most prominent in the anterior aspect of the left temporal lobe. Small retention cyst in both maxillary antra. Osseous structures are intact. MRI negative. TSH normal, normal B12, RPR screen nonreactive, HIV 1 and 2 antibody negative. Patient likely could have permanent cerebral damage secondary to alcohol abuse. 12/04 B12 low - patient started on B12 injections, appreciate neurology recommendations. Patient to gait B12 injections 1000 mcg IM daily for a week, then weekly for a month and then monthly thereafter. The patient was also started on Namenda 5 mg at bedtime for 1 week and then after the first week increase to twice a day dosing. The patient should follow-up with neurology as an outpatient in 2 weeks. (3) Hyponatremia Plan: Suspect hypovolemic hyponatremia. Place on IV normal saline monitor BMP. 2 sodium back to normal levels after IV normal saline administration. (4) Leukocytosis Plan: Check urinalysis. Chest x-ray did not show any evidence of pneumonia. 12/03 UA positive. Will start the patient on IV Rocephin pending cultures. 12/04 urine cultures negative. I will discontinue Rocephin. (5) Fall at home Plan: Physical therapy evaluation. Follow at home likely induced by hyponatremia worsened mental status. Assessment and Plan DVT prophylaxis: Heparin subcutaneously. Discharge Planning Continue to monitor the medical floor. Discharge pending orthopedic clearance. Problem Qualifiers (1) Early onset Alzheimer's dementia: Qualified Codes: G30.0 - Alzheimer's disease with early onset; F02.80 - Dementia in other diseases classified elsewhere without behavioral disturbance (2) Leukocytosis: Qualified Codes: D72.829 - Elevated white blood cell count, unspecified Hossein Paniagua MD Dec 04, 2017 18:23
[2017-12-05] VITALS (7 sets, daily range): BP systolic 130–145; BP diastolic 72–87; PULSE 70–88; RESP 17–18; TEMP 96.2–98.5; O2SAT 95–98
[2017-12-05] MEDS: MAGNESIUM HYDROXIDE SUSP 30 ML CUP PO PRN ×2 (05:01→22:16)
[2017-12-05] MEDS: THIAMINE HCL 100 MG TAB PO SCH (09:22)
[2017-12-05] MEDS: CHOLECALCIFEROL (VIT D3) 5000 UNIT CAP PO SCH (09:22)
[2017-12-05] MEDS: FOLIC ACID 1 MG TAB PO SCH (09:22)
[2017-12-05] MEDS: CYANOCOBALAMIN 1000 MCG/ML VIAL IM SCH (09:23)
[2017-12-05] MEDS: DOCUSATE SODIUM 50 MG/SENNA 8.6 MG TAB PO SCH ×2 (09:23→22:16)
[2017-12-05] MEDS: SODIUM CHLORIDE 0.9% FLUSH 10 ML FLUSH IV FLUSH SCH ×2 (09:23→22:16)
[2017-12-05] MEDS: MEMANTINE HCL 5 MG TAB PO SCH (09:23)
[2017-12-05] MEDS: ACETAMINOPHEN/HYDROcodone 325 MG/7.5 MG TAB PO PRN ×2 (09:26→15:55)
[2017-12-05] MEDS: ENOXAPARIN SODIUM 30 MG/0.3 ML SYRINGE SQ SCH (12:38)
--- NOTE | 2017-12-05 12:56 | PD.ORT.PN ---
Subjective Subjective Remarks Patient resting comfortably this morning. Patient sitting at bedside chair. Denies chest pain or shortness of breath. Objective Vitals Vital Signs Date Time Temp Pulse Resp B/P (MAP) Pulse Ox O2 Delivery O2 Flow Rate FiO2 12/05/17 12:07 96.9 77 18 130/72 (91) 98 12/05/17 07:59 96.5 88 17 141/87 (105) 95 12/05/17 04:00 97.9 73 17 145/81 (102) 97 12/05/17 00:00 98.5 83 17 130/81 (97) 97 12/04/17 20:00 98.1 81 20 139/78 (98) 98 12/04/17 16:00 97.5 74 17 131/80 (97) 98 I/O 12/04/17 12/04/17 12/04/17 12/05/17 12/05/17 12/05/17 07:00 15:00 23:00 07:00 15:00 23:00 Intake Total 240 ml 550 ml 1875 ml 1005 ml Output Total 475 ml 700 ml 25 ml Balance 240 ml 550 ml 1400 ml 305 ml -25 ml Intake Oral 240 ml 1200 ml IV Total 550 ml 675 ml 1005 ml Output Urine Total 400 ml 700 ml Drainage Total 75 ml 25 ml # Voids 0 # Bowel Movements 0 Result Diagram: 12/04/17 0609 12/04/17 0609 Imaging Last 24 hours Impressions Hip and Pelvis X-Ray 12/02/17919 Signed Impressions: Service Date/Time: November 10:02 - CONCLUSION: 1. Acute fracture involving the left femoral neck. 2. Degenerative changes involving the lower lumbar spine. Rashid Castañeda MD Chest X-Ray 12/02/17919 Signed Impressions: Service Date/Time: November 10:14 - CONCLUSION: 1. Faint periosteal reaction symmetrically along the lateral aspect of both second ribs probably represents a normal tendinous or ligamentous attachment. 2. Mild dextroscoliosis of the dorsal spine with associated degenerative changes. 3. Otherwise negative. Lungs are clear. No acute osseous injury. Ronny Mccoy MD Objective Remarks Awake, alert, no acute distress LLE: dressings clean and dry. intact.+CKS. Negative Homans Assessment & Plan Assessment and Plan 1) Subcapital fracture of left femur s/p hemiarthroplasty - POD 2 -WBAT -posterior hip precautions -daily dressing changes of incision with primapore. begin adding xeroform POD 10. Drain removed today -knee brace while in bed. -CM for rehab vs home with [facility] -f/u with [facility] or [facility] in 2 weeks Emilie Wesley MD Dec 05, 2017 12:56
--- NOTE | 2017-12-05 16:27 | HHI.PR ---
Subjective Remarks Deferred note, the patient was seen in a.m. around 10:45 AM. Pain controlled. afebrile Objective Vitals Vital Signs Date Time Temp Pulse Resp B/P (MAP) Pulse Ox O2 Delivery O2 Flow Rate FiO2 12/05/17 16:01 96.2 82 17 140/82 (101) 98 12/05/17 12:07 96.9 77 18 130/72 (91) 98 12/05/17 07:59 96.5 88 17 141/87 (105) 95 12/05/17 04:00 97.9 73 17 145/81 (102) 97 12/05/17 00:00 98.5 83 17 130/81 (97) 97 12/04/17 20:00 98.1 81 20 139/78 (98) 98 I/O 12/04/17 12/04/17 12/04/17 12/05/17 12/05/17 12/05/17 06:59 14:59 22:59 06:59 14:59 22:59 Intake Total 240 ml 550 ml 1875 ml 1005 ml Output Total 475 ml 700 ml 25 ml Balance 240 ml 550 ml 1400 ml 305 ml -25 ml Intake Oral 240 ml 1200 ml IV Total 550 ml 675 ml 1005 ml Output Urine Total 400 ml 700 ml Drainage Total 75 ml 25 ml # Voids 0 # Bowel Movements 0 Result Diagram: 12/04/1760812/04/17608 Objective Remarks GENERAL: This is a well-nourished, well-developed patient, in no apparent distress. SKIN: No rashes, ecchymoses or lesions. Cool and dry. HEAD: Atraumatic. Normocephalic. No temporal or scalp tenderness. EYES: Pupils equal round and reactive. Extraocular motions intact. No scleral icterus. No injection or drainage. ENT: Nose without bleeding, purulent drainage or septal hematoma. Throat without erythema, tonsillar hypertrophy or exudate. Uvula midline. Airway patent. NECK: Trachea midline. No JVD or lymphadenopathy. Supple, nontender, no meningeal signs. CARDIOVASCULAR: Regular rate and rhythm without murmurs, gallops, or rubs. RESPIRATORY: Clear to auscultation. Breath sounds equal bilaterally. No wheezes , rales, or rhonchi. GASTROINTESTINAL: Abdomen soft, non-tender, nondistended. No hepato-splenomegaly , or palpable masses. No guarding. MUSCULOSKELETAL: LLE: dressings clean and dry. intact. +drain. +CKS. Negative Homans NEUROLOGICAL: Awake and alert. Cranial nerves II through XII intact. Motor and sensory grossly within normal limits. Five out of 5 muscle strength in all muscle groups. Normal speech Procedures Left hip bipolar arthroplasty A/P Problem List: (1) Left displaced femoral neck fracture ICD Code: S72.002A - Fracture of unspecified part of neck of left femur, initial encounter for closed fracture Status: Acute (2) Early onset Alzheimer's dementia ICD Code: G30.0 - Alzheimer's disease with early onset; F02.80 - Dementia in other diseases classified elsewhere without behavioral disturbance (3) Hyponatremia ICD Code: E87.1 - Hypo-osmolality and hyponatremia (4) Leukocytosis ICD Code: D72.829 - Elevated white blood cell count, unspecified (5) Fall at home ICD Code: W19.XXXA - Unspecified fall, initial encounter; Y92.009 - Unspecified place in unspecified non-institutional (private) residence as the place of occurrence of the external cause Assessment and Plan (1) Left displaced femoral neck fracture Plan: Patient status post fall at home. Pelvis x-ray showed an acute fracture involving the left femoral neck. Orthopedic surgery consulted. Patient for OR in a.m. SP left hip bipolar arthroplasty. Pain management as per orthopedic surgery. DVT prophylaxis as per orthopedic surgery. (2) Early onset Alzheimer's dementia ICD Code: G30.0 - Alzheimer's disease with early onset; F02.80 - Dementia in other diseases classified elsewhere without behavioral disturbance Plan: As per the patient's the patient is more confused than usual. We will order head CT, MRI of the brain, B12, RPR, HIV, TSH 12/03 CT of the head shows cerebral atrophy, most prominent in the anterior aspect of the left temporal lobe. Small retention cyst in both maxillary antra. Osseous structures are intact. MRI negative. TSH normal, normal B12, RPR screen nonreactive, HIV 1 and 2 antibody negative. Patient likely could have permanent cerebral damage secondary to alcohol abuse. 12/04 B12 low - patient started on B12 injections, appreciate neurology recommendations. Patient to gait B12 injections 1000 mcg IM daily for a week, then weekly for a month and then monthly thereafter. The patient was also started on Namenda 5 mg at bedtime for 1 week and then after the first week increase to twice a day dosing. The patient should follow-up with neurology as an outpatient in 2 weeks. (3) Hyponatremia Plan: Suspect hypovolemic hyponatremia. Place on IV normal saline monitor BMP. 12/03 sodium back to normal levels after IV normal saline administration. (4) Leukocytosis Plan: Check urinalysis. Chest x-ray did not show any evidence of pneumonia. 12/03 UA positive. Will start the patient on IV Rocephin pending cultures. 12/04 urine cultures negative. Rocephin discontinued. (5) Fall at home Plan: Physical therapy evaluation. Follow at home likely induced by hyponatremia worsened mental status. Assessment and Plan DVT prophylaxis: Heparin subcutaneously. Discharge Planning Continue to monitor the medical floor. Discharge pending orthopedic clearance. Problem Qualifiers (1) Early onset Alzheimer's dementia: Qualified Codes: G30.0 - Alzheimer's disease with early onset; F02.80 - Dementia in other diseases classified elsewhere without behavioral disturbance (2) Leukocytosis: Qualified Codes: D72.829 - Elevated white blood cell count, unspecified Hossein Paniagua MD Dec 05, 2017 16:27
[2017-12-05] MEDS ORDERED: THIA100 PO (17:12)
[2017-12-05] MEDS ORDERED: AMLO10 PO (17:12)
[2017-12-05] MEDS ORDERED: FOLI1TAB6 PO (17:12)
[2017-12-05] MEDS ORDERED: CYAN1000P IM ×3 (17:12)
[2017-12-05] MEDS ORDERED: NAME5TAB2 PO (17:16)
[2017-12-05] MEDS ORDERED: MEMA1TAB PO (17:16)
[2017-12-06 00:08] VITALS: BP 144/82; PULSE 72; RESP 16; TEMP 97.9; O2SAT 96
[2017-12-06 02:22] VITALS: O2SAT 96
[2017-12-06 04:13] VITALS: BP 149/83; PULSE 70; RESP 18; TEMP 98; O2SAT 100
[2017-12-06] MEDS: ACETAMINOPHEN/HYDROcodone 325 MG/7.5 MG TAB PO PRN ×3 (06:03→14:07)
--- NOTE | 2017-12-06 06:42 | PD.ORT.PN ---
Subjective Subjective Remarks Theodure is awake and alert. No complaints. Appears comfortable Objective Vitals Vital Signs Date Time Temp Pulse Resp B/P (MAP) Pulse Ox O2 Delivery O2 Flow Rate FiO2 12/06/17 04:13 98.0 70 18 149/83 (105) 100 12/06/17 02:22 96 12/06/17 00:08 97.9 72 16 144/82 (102) 96 12/05/17 20:10 97.5 70 18 135/82 (99) 98 12/05/17 18:54 75 12/05/17 16:01 96.2 82 17 140/82 (101) 98 12/05/17 12:07 96.9 77 18 130/72 (91) 98 12/05/17 07:59 96.5 88 17 141/87 (105) 95 I/O 12/05/17 12/05/17 12/05/17 12/06/17 12/06/17 12/06/17 07:00 15:00 23:00 07:00 15:00 23:00 Intake Total 1005 ml 1750 ml Output Total 700 ml 1200 ml 550 ml Balance 305 ml 550 ml -550 ml Intake Oral 1750 ml IV Total 1005 ml Output Urine Total 700 ml 1175 ml 550 ml Drainage Total 25 ml # Bowel Movements 1 Result Diagram: 12/04/17 0609 12/04/17 06 Imaging Last 24 hours Impressions Hip and Pelvis X-Ray 12/02/17919 Signed Impressions: Service Date/Time: November 10:02 - CONCLUSION: 1. Acute fracture involving the left femoral neck. 2. Degenerative changes involving the lower lumbar spine. Rashid Castañeda MD Chest X-Ray 12/02/17919 Signed Impressions: Service Date/Time: November 10:14 - CONCLUSION: 1. Faint periosteal reaction symmetrically along the lateral aspect of both second ribs probably represents a normal tendinous or ligamentous attachment. 2. Mild dextroscoliosis of the dorsal spine with associated degenerative changes. 3. Otherwise negative. Lungs are clear. No acute osseous injury. Ronny Mccoy MD Objective Remarks Awake, alert, no acute distress LLE: dressings clean and dry. intact.+CKS. No drainage. Negative Homans Assessment & Plan Assessment and Plan 1) Subcapital fracture of left femur s/p hemiarthroplasty - POD 3 -WBAT -posterior hip precautions -daily dressing changes of incision with primapore. begin adding xeroform POD 10. -knee brace while in bed. -CM for rehab vs home with [facility] -f/u with [facility] or [facility] in 2 weeks Chong Baires MD Dec 06, 2017 06:42
[2017-12-06 08:00] VITALS: BP 134/81; PULSE 70; RESP 18; TEMP 97.7; O2SAT 96
[2017-12-06] MEDS: FOLIC ACID 1 MG TAB PO SCH (08:54)
[2017-12-06] MEDS: CHOLECALCIFEROL (VIT D3) 5000 UNIT CAP PO SCH (08:54)
[2017-12-06] MEDS: DOCUSATE SODIUM 50 MG/SENNA 8.6 MG TAB PO SCH (08:54)
[2017-12-06] MEDS: MEMANTINE HCL 5 MG TAB PO SCH (08:54)
[2017-12-06] MEDS: THIAMINE HCL 100 MG TAB PO SCH (08:54)
[2017-12-06] MEDS: CYANOCOBALAMIN 1000 MCG/ML VIAL IM SCH (08:55)
[2017-12-06] MEDS: SODIUM CHLORIDE 0.9% FLUSH 10 ML FLUSH IV FLUSH SCH (08:55)
[2017-12-06] MEDS ORDERED: COMMODE 3-IN-11 MIS (11:24)
[2017-12-06 12:00] VITALS: BP 112/74; PULSE 83; RESP 18; TEMP 96; O2SAT 99
[2017-12-06] MEDS: ENOXAPARIN SODIUM 30 MG/0.3 ML SYRINGE SQ SCH (12:39)
--- NOTE | 2017-12-06 15:11 | HHI.PR ---
Subjective Remarks No major overnight events - pain controlled. Patient back to baseline mental status. Objective Vitals Vital Signs Date Time Temp Pulse Resp B/P (MAP) Pulse Ox O2 Delivery O2 Flow Rate FiO2 12/06/17 12:00 96.0 83 18 112/74 (87) 99 12/06/17 08:00 97.7 70 18 134/81 (98) 96 12/06/17 04:13 98.0 70 18 149/83 (105) 100 12/06/17 02:22 96 12/06/17 00:08 97.9 72 16 144/82 (102) 96 12/05/17 20:10 97.5 70 18 135/82 (99) 98 12/05/17 18:54 75 12/05/17 16:01 96.2 82 17 140/82 (101) 98 I/O 12/05/17 12/05/17 12/05/17 12/06/17 12/06/17 12/06/17 06:59 14:59 22:59 06:59 14:59 22:59 Intake Total 1005 ml 1750 ml Output Total 700 ml 1200 ml 550 ml Balance 305 ml 550 ml -550 ml Intake Oral 1750 ml IV Total 1005 ml Output Urine Total 700 ml 1175 ml 550 ml Drainage Total 25 ml # Bowel Movements 1 Result Diagram: 12/04/17 0609 12/04/17 0609 Imaging Last Impressions Hip and Pelvis X-Ray 12/03/17 1110 Signed Impressions: Service Date/Time: Sunday, December 03, 2017 11:51 - CONCLUSION: Left femoral neck fracture repaired with total hip arthroplasty as above. No fracture or dislocation Ronny Mccoy MD Chest X-Ray 12/02/17 0920 Signed Impressions: Service Date/Time: November 10:14 - CONCLUSION: 1. Faint periosteal reaction symmetrically along the lateral aspect of both second ribs probably represents a normal tendinous or ligamentous attachment. 2. Mild dextroscoliosis of the dorsal spine with associated degenerative changes. 3. Otherwise negative. Lungs are clear. No acute osseous injury. Ronny Mccoy MD Head CT 12/02/17 0000 Signed Impressions: Service Date/Time: November 14:59 - CONCLUSION: 1. Cerebral atrophy, most prominent in the anterior aspect of the left temporal lobe. 2. Small retention cyst in both maxillary antra. Osseous structures are intact. Ronny Mccoy MD Brain MRI 12/02/17 0000 Signed Impressions: Service Date/Time: November 14:09 - CONCLUSION: 1. Negative examination. Corbin Ott MD Objective Remarks GENERAL: This is a well-nourished, well-developed patient, in no apparent distress. SKIN: No rashes, ecchymoses or lesions. Cool and dry. HEAD: Atraumatic. Normocephalic. No temporal or scalp tenderness. EYES: Pupils equal round and reactive. Extraocular motions intact. No scleral icterus. No injection or drainage. ENT: Nose without bleeding, purulent drainage or septal hematoma. Throat without erythema, tonsillar hypertrophy or exudate. Uvula midline. Airway patent. NECK: Trachea midline. No JVD or lymphadenopathy. Supple, nontender, no meningeal signs. CARDIOVASCULAR: Regular rate and rhythm without murmurs, gallops, or rubs. RESPIRATORY: Clear to auscultation. Breath sounds equal bilaterally. No wheezes , rales, or rhonchi. GASTROINTESTINAL: Abdomen soft, non-tender, nondistended. No hepato-splenomegaly , or palpable masses. No guarding. MUSCULOSKELETAL: LLE: dressings clean and dry. intact. +drain. +CKS. Negative Homans NEUROLOGICAL: Awake and alert. Cranial nerves II through XII intact. Motor and sensory grossly within normal limits. Five out of 5 muscle strength in all muscle groups. Normal speech Procedures Left hip bipolar arthroplasty Medications and IVs Current Medications Medications (Trade) Dose Ordered Sig/Robert Route Start Time Stop Time Status Last Admin (NS Flush) 2 ml UNSCH PRN IV FLUSH 12/02/17 13:00 (NS Flush) 2 ml BID IV FLUSH 12/02/17 21:00 12/05/17 22:16 (Tylenol) 650 mg Q4H PRN PO 12/02/17 13:00 (Zofran Inj) 4 mg Q6H PRN IVP 12/02/17 13:00 (Narcan Inj) 0.4 mg UNSCH PRN IV PUSH 12/02/17 13:00 (Melinda-Colace) 1 tab BID PO 12/02/17 21:00 12/06/17 08:54 (Milk Of Magnesia Liq) 30 ml Q12H PRN PO 12/02/17 13:00 12/05/17 22:16 (Senokot) 17.2 mg Q12H PRN PO 12/02/17 13:00 12/05/17 22:16 (Dulcolax Supp) 10 mg DAILY PRN RECTAL 12/02/17 13:00 (Lactulose Liq) 30 ml DAILY PRN PO 12/02/17 13:00 12/05/17 18:32 (Morphine Inj) 2 mg Q3H PRN IV PUSH 12/02/17 13:00 12/03/17 00:07 (Romazicon Inj) 0.2 mg Q1M PRN IV PUSH 12/02/17 13:15 (Ativan) 1 mg Q4H PRN PO 12/02/17 13:15 (Ativan Inj) 1 mg Q4H PRN IV PUSH 12/02/17 13:15 12/02/17 20:00 (Ativan) 2 mg Q2H PRN PO 12/02/17 13:15 (Ativan Inj) 2 mg Q2H PRN IV PUSH 12/02/17 13:15 12/03/17 01:06 (Ativan Inj) 2 mg Q1H PRN IV PUSH 12/02/17 13:15 (Ativan Inj) 2 mg Q15M PRN IV PUSH 12/02/17 13:15 (Folate) 1 mg DAILY PO 12/03/17 09:00 12/06/17 08:54 (Vitamin B1) 100 mg DAILY PO 12/03/17 09:00 12/06/17 08:54 (Lovenox Inj) 30 mg Q24H SQ 12/04/17 11:27 12/06/17 12:39 ([place] 7.5-325 Mg) 1 tab Q3H PRN PO 12/03/17 13:00 12/06/17 14:07 (Morphine Inj) 3 mg Q3H PRN IV PUSH 12/03/17 11:15 (Vitamin D3) 5,000 units DAILY PO 12/04/17 09:00 12/06/17 08:54 (Catapres) 0.1 mg Q6H PRN PO 12/03/17 11:30 (Norvasc) 10 mg DAILY PO 12/03/17 12:00 12/06/17 08:54 (Vitamin B12 Inj) 1,000 mcg DAILY IM 12/04/17 12:00 12/10/17 09:01 12/06/17 08:55 (Namenda) 5 mg DAILY PO 12/05/17 09:00 12/06/17 08:54 (Vitamin B12 Inj) 1,000 mcg Q7D IM 12/17/17 09:00 01/07/18 09:01 (Vitamin B12 Inj) 1,000 mcg Q30D IM 02/07/18 09:00 A/P Problem List: (1) Left displaced femoral neck fracture ICD Code: S72.002A - Fracture of unspecified part of neck of left femur, initial encounter for closed fracture Status: Acute (2) Early onset Alzheimer's dementia ICD Code: G30.0 - Alzheimer's disease with early onset; F02.80 - Dementia in other diseases classified elsewhere without behavioral disturbance (3) Hyponatremia ICD Code: E87.1 - Hypo-osmolality and hyponatremia (4) Leukocytosis ICD Code: D72.829 - Elevated white blood cell count, unspecified (5) Fall at home ICD Code: W19.XXXA - Unspecified fall, initial encounter; Y92.009 - Unspecified place in unspecified non-institutional (private) residence as the place of occurrence of the external cause Assessment and Plan (1) Left displaced femoral neck fracture Plan: Patient status post fall at home. Pelvis x-ray showed an acute fracture involving the left femoral neck. Orthopedic surgery consulted. Patient for OR in a.m. SP left hip bipolar arthroplasty. Pain management as per orthopedic surgery. DVT prophylaxis as per orthopedic surgery. (2) Early onset Alzheimer's dementia ICD Code: G30.0 - Alzheimer's disease with early onset; F02.80 - Dementia in other diseases classified elsewhere without behavioral disturbance Plan: As per the patient's the patient is more confused than usual. We will order head CT, MRI of the brain, B12, RPR, HIV, TSH 12/03 CT of the head shows cerebral atrophy, most prominent in the anterior aspect of the left temporal lobe. Small retention cyst in both maxillary antra. Osseous structures are intact. MRI negative. TSH normal, normal B12, RPR screen nonreactive, HIV 1 and 2 antibody negative. Patient likely could have permanent cerebral damage secondary to alcohol abuse. B12 low - patient started on B12 injections, appreciate neurology recommendations. Patient to gait B12 injections 1000 mcg IM daily for a week, then weekly for a month and then monthly thereafter. The patient was also started on Namenda 5 mg at bedtime for 1 week and then after the first week increase to twice a day dosing. The patient should follow-up with neurology as an outpatient in 2 weeks. (3) Hyponatremia Plan: Suspect hypovolemic hyponatremia. Place on IV normal saline monitor BMP. Resolved after IVF administration. (4) Leukocytosis Plan: Check urinalysis. Chest x-ray did not show any evidence of pneumonia. 12/03 UA positive. Will start the patient on IV Rocephin pending cultures. 12/04 urine cultures negative. Rocephin discontinued. (5) Fall at home Plan: Physical therapy evaluation. Follow at home likely induced by hyponatremia worsened mental status. Assessment and Plan DVT prophylaxis: Heparin subcutaneously. Discharge Planning Dc once arrangements made. Problem Qualifiers (1) Early onset Alzheimer's dementia: Qualified Codes: G30.0 - Alzheimer's disease with early onset; F02.80 - Dementia in other diseases classified elsewhere without behavioral disturbance (2) Leukocytosis: Qualified Codes: D72.829 - Elevated white blood cell count, unspecified (3) Fall at home: Qualified Codes: W19.XXXA - Unspecified fall, initial encounter; Y92.009 - Unspecified place in unspecified non-institutional (private) residence as the place of occurrence of the external cause Hossein Paniagua MD Dec 06, 2017 15:11
[2017-12-13] MEDS ORDERED: LIDOCAINE HCL 1% PF 5 ML SYRINGE OTHER ONE (12:00)
[2017-12-13] MEDS ORDERED: LACTATED RINGER'S 1000 ML INJ 1,000 ML IV ONE (12:00)
[2017-12-17] MEDS ORDERED: CYANOCOBALAMIN 1000 MCG/ML VIAL IM SCH (09:00)
[2018-02-07] MEDS ORDERED: CYANOCOBALAMIN 1000 MCG/ML VIAL IM SCH (09:00)
== END 2017-12-06 17:09 | disposition home health service (06) | DRG 470 ==
LOC: NEPE 09:12 → NEDA 11:49 → N06A 16:42
PROVIDERS: ADMIT Hospitalist; ATTEND Hospitalist
PROC: 0SRS0JA Replacement of Left Hip Joint, Femoral Surface with Synthetic Substitute, Uncemented, Open Approach (ICD-10-PCS; principal; 2017-12-03 10:01)
DX: S72.012A Unspecified intracapsular fracture of left femur, initial encounter for closed fracture (principal); E87.1 Hypo-osmolality and hyponatremia; G31.2 Degeneration of nervous system due to alcohol; G30.0 Alzheimer's disease with early onset; F02.80 Dementia in other diseases classified elsewhere, unspecified severity, without behavioral disturbance, psychotic disturbance, mood disturbance, and anxiety; S50.811A Abrasion of right forearm, initial encounter; D72.829 Elevated white blood cell count, unspecified; E53.8 Deficiency of other specified B group vitamins; E86.1 Hypovolemia; F10.10 Alcohol abuse, uncomplicated; J34.1 Cyst and mucocele of nose and nasal sinus; F17.210 Nicotine dependence, cigarettes, uncomplicated; W18.30XA Fall on same level, unspecified, initial encounter; Y92.009 Unspecified place in unspecified non-institutional (private) residence as the place of occurrence of the external cause; Z78.1 Physical restraint status
CPT/HCPCS: 70450; 70553; 71045; 73502; 80048; 80053; 81001; 82306; 82607; 82746; 83036; 83735; 84100; 84443; 85025; 85610; 85730; 86592; 86703; 86850; 86900; 86901; 87086; 90471; 90714; 93005; 96374; 96375; A9579; C1776; J0690; J1100; J1580; J1644; J1650; J2060; J2270; J2405; J2710; J3010; J3370; J3420; J7050